=== PATIENT | male | born 1955 | race Caucasian/White ===

== ENCOUNTER 2016-05-28 13:15 | Emergency (ER) | payer MEDICARE, OTHER ==
[~2016-05-28] VITALS: Ht 182.9 cm; Wt 145.4 kg
[~2016-05-28 13:15] MED LIST: TORS20TA3 PO
[2016-05-28 13:20] VITALS: BP 151/77; PULSE 78; RESP 20; O2SAT 95
[2016-05-28 15:16] LABS: BASOPHILS % (AUTO) 0.1 % (0-3); EOSINOPHILS % (AUTO) 0.1 % (0-5); MONOCYTES % (AUTO) 4.5 % (4-12); Mean Corpuscular Hemoglobin 29.2 pg (27.0-35.0); Mean Corpuscular Volume 87.2 fL (81-100); NEUTROPHILS % (AUTO) 89.1 % (40-74); Platelet Count 154 bil/L (150-400)
[2016-05-28 15:32] VITALS: BP 143/69; PULSE 69; RESP 20; O2SAT 96
[2016-05-28 17:08] VITALS: BP 157/61; PULSE 78; RESP 20; O2SAT 100
--- NOTE | 2016-05-28 18:09 | ED.REPORT ---
HPI-Extremity Problem Lower Date of Service May 28, 2016 ED Provider: Edward Jacobs MD Pt is a 61 y/o male w/ a hx of CHF, stage 3 CKD, DM, presenting to the ED c/o rash over RLE onset this morning. The patient woke up this morning and noticed about 5 inches of redness and pain over his right thigh. Last night he was experiencing fevers and chills. He hasn't noticed any increased growth of the rash throughout the day. Pt denies nausea, vomiting, abdominal pain, SOB. He has had cellulitis previously and believes this episode is exactly similar. There is no history of MRSA. The patient has chronic wounds over his bilateral lower extremities and sees wound care weekly. Nursing Notes Stated Complaint: FEVER,RIGHT LEG SWOLLEN Chief Complaint: Extremity Trauma Nursing Notes Reviewed: Yes Allergies: Coded Allergies: Opioids - Morphine Analogues (Verified Allergy, Unknown, 08/22/11) hydrocodone bitartrate (Verified Allergy, Unknown, 08/22/11) hydromorphone (Verified Allergy, Unknown, 08/22/11) oxycodone (Verified Allergy, Unknown, 08/22/11) Uncoded Allergies: CODEINE (Generic Allergy) (Allergy, Unknown, Y, 08/22/11) CODEINE=N&V (Allergy, Unknown, 08/22/11) Opiate Agonists (Narcotics) (Allergy, Unknown, 08/22/11) TOMATOES (Allergy, Unknown, 08/22/11) CODEINE (Generic ADR) (Adverse Reaction, Unknown, Y, 08/22/11) N/V Scheduled Sulfamethoxazole/Trimeth 800-160 mg (Bactrim DS) 1 Each Tablet 1 TABLET PO BID Torsemide (Torsemide) 20 Mg Tablet 60 MG PO BID General Time Seen by MD: 18:08 Chief Complaint Other (Rash right thigh) Hx Obtained From: Patient Arrived By: Walk-in Onset Occurred: 9 - 12 hours ago Symptom Duration: Since onset Location: : Thigh right Quality: Painful Severity: Current: Mild Severity: Maximum: Mild Recent Healthcare: Previous diagnosis Similar Sx Previous: Yes Past Medical History Past Medical History DM, CHF, CKD stage III, peripheral neuropathy, chronic pain Past Surgical History None reported Smoking History Unknown if Ever Smoker Ambulatory Status Independent Review of Systems Constitutional: Reports: Chills, Fever Musculoskeletal: Reports: Extremity pain, Extremity swelling Skin: Reports Rash, Reports Swelling Complete sys rev & neg: except as marked. GI: Denies: Abdominal pain, Nausea, Vomiting Physical Exam Initial Vital Signs Vital Signs (First) Date Time Temp Pulse Resp B/P Pulse Ox O2 Delivery O2 Flow Rate FiO2 05/28/16 13:20 36.4 78 20 151/77 95 Room Air Initial VS: Reviewed, Vital signs abnormal Head / Eyes: Atraumatic, Normocephalic, PERRL ENT: Mucous membranes moist, Conjunctiva normal, No scleral icterus Neck: Supple, Full range of motion Respiratory: Breath sounds normal, Clear to auscultation, No respiratory distress Cardiovascular: Regular rate & rhythm, Heart sounds normal, Intact distal pulses Abdomen / GI: Soft, Non-tender Neurologic: Alert, Oriented, Nonfocal Psychiatric: Mood/affect normal, Behavior normal, Normal thought content Lower Extremity / Pelvis / MS: Atraumatic, Full range of motion, No deformity, Neurologic intact, Vascular intact Ankle / Foot: Atraumatic, Full range of motion, No deformity, Neurologic intact , Vascular intact General/Constitutional: Awake, Alert, No acute distress, Cooperative, Not toxic appearing Appearance / Presentation: Positive: Obese Skin: Atraumatic, Warm, Dry Color / Condition: Positive: Rash present Rash / Lesion Notes: Chronic ulcers RLE. Several scattered superficial ulcers. No purulence right anterior yepez. Scattered erythema medial right thigh about 10 x 5 cm. Interpretation & Diagnostics Lab Results Interpretation Result Diagram: 05/28/16 1510 05/28/16 1510 Test 05/28/16 15:10 White Blood Count 10.5th/mm3 (3.8-10.1) Red Blood Count 4.31mil/mm3 (4.40-5.80) Hemoglobin 12.6g/dL (13.8-17.2) Hematocrit 37.6% (41.0-50.0) Mean Corpuscular Volume 87.2fL (81-100) Mean Corpuscular Hemoglobin 29.2pg (27.0-35.0) Mean Corpuscular Hemoglobin Concent 33.5% (32.0-37.0) Red Cell Distribution Width 14.7% (12.3-15.4) Platelet Count 154bil/L (150-400) Neutrophils (%) (Auto) 89.1% (40-74) Lymphocytes (%) (Auto) 5.9% (14-46) Monocytes (%) (Auto) 4.5% (4-12) Eosinophils (%) (Auto) 0.1% (0-5) Basophils (%) (Auto) 0.1% (0-3) Sodium Level 133mEq/L (134-144) Potassium Level 4.8mEq/L (3.5-5.2) Chloride Level 94mEq/L (97-108) Carbon Dioxide Level 24mmol/L (18-29) Blood Urea Nitrogen 35mg/dL (8-27) Creatinine 1.63mg/dL (0.76-1.27) Estimat Glomerular Filtration Rate 46mL/min (>59) Glucose Level 352mg/dL (60-99) Calcium Level 8.8mg/dL (8.5-10.1) Total Bilirubin 1.6mg/dL (0.0-1.2) Aspartate Amino Transf (AST/SGOT) 22U/L (0-50) Alanine Aminotransferase (ALT/SGPT) 27U/L (0-44) Alkaline Phosphatase 64U/L (25-160) Total Protein 6.6g/dL (6.4-8.4) Albumin 4.1g/dL (3.4-5.0) Hold Argueta Top Tube Received (Received) Re-Eval/Medical Decision Med Decision/Clinical Course 61-year-old male history of diabetes, CKD3, CHF presenting with right thigh cellulitis times one day. Chronic lower extremity ulcers seen by wound care. Reports redness starting today. No fevers. Vital signs stable. Patient with scattered right thigh cellulitis. White blood cell count is 10. Vital signs stable here. Will give 1 dose of IV clindamycin here. Will start on Bactrim. Patient has follow-up with primary doctor in 2 days. He is advised to return if any worsening or new symptoms prior to appointment. Re-Evaluation/Progress : Time of Eval: 19:01 Re-Evaluation/Progress Note: Pt rechecked. Informed pt of plan for treatment. Pt understands and agrees with plan for treatment. F/U instructions and RTER warnings given. All questions addressed. Counseled Regarding: Diagnosis, Lab results, Need for follow-up, When/why to return to ED Discharge & Departure Impression: Primary Impression: Cellulitis of right leg Disposition: Home Discharge Condition All VS Reviewed: Yes Condition: Stable Patient Instructions: Cellulitis (ED) Additional Instructions: Your exam is consistent with cellulitis, an infection of the skin. Take the full course of Bactrim as directed. Return to the emergency department if your rash increases in size, pain increases, or for vomiting, abdominal pain, high fever, shaking chills, or other concerning symptoms. Follow-up with your primary care doctor in 2-3 days. Referrals: Hallie Kelly MD (PCP) Art Attestation Portions of this note were transcribed by Holden Godinez. I, Dr. Jacobs, personally performed the history, physical exam and medical decision-making; I reviewed and confirmed the accuracy of the information in the transcribed note. Signed by Art Bailey, 05/28/16 - [id number] copies to: Hallie Kelly MD, Ben M MD May 28, 2016 18:09 HOLDEN GODINEZ May 28, 2016 18:44
[2016-05-28] MEDS ORDERED: SULF1TAB7 PO (18:43)
[2016-05-28] MEDS ORDERED: Clindamycin Inj 300 MG in Dextrose 5% 50 ML IV ONE (18:45)
[2016-05-28 19:48] VITALS: BP 149/56; PULSE 75; RESP 20; O2SAT 95
[2016-07-20] MEDS ORDERED: EPLE25TA3 PO (16:19)
[2016-07-20] MEDS ORDERED: ASPI325T32 PO (16:19)
[2016-07-20] MEDS ORDERED: CLON0.1T PO (16:19)
[2016-07-20] MEDS ORDERED: INSU100V27 SQ (16:19)
[2016-07-20] MEDS ORDERED: LIP40 PO (16:19)
[2016-07-20] MEDS ORDERED: NPH,100V10 SUBQ (16:19)
[2016-07-20] MEDS ORDERED: MAGN64TA7 PO (16:19)
[2016-07-20] MEDS ORDERED: TORS20TA3 PO ×3 (16:19)
[2016-07-20] MEDS ORDERED: MULT-1018 PO (16:19)
[2016-07-20] MEDS ORDERED: CARV25TA2 PO (16:19)
[2016-07-20] MEDS ORDERED: GLIM4TAB PO (16:19)
[2016-07-20] MEDS ORDERED: [UNRECOGNIZED DRUG - CODE] TP (16:19)
[2016-07-20] MEDS ORDERED: TERA5CAP6 PO (16:19)
[2016-07-20] MEDS ORDERED: HYDR-3740 PO (16:19)
[2016-07-20] MEDS ORDERED: AMOX-366 PO (16:19)
== END 2016-05-28 19:50 | disposition home or self-care (01) ==
LOC: SED 13:15
DX: L03.115 Cellulitis of right lower limb (principal); R50.9 Fever, unspecified; L97.919 Non-pressure chronic ulcer of unspecified part of right lower leg with unspecified severity; L97.929 Non-pressure chronic ulcer of unspecified part of left lower leg with unspecified severity; E11.22 Type 2 diabetes mellitus with diabetic chronic kidney disease; N18.3 Chronic kidney disease, stage 3 (moderate); E11.59 Type 2 diabetes mellitus with other circulatory complications; I50.9 Heart failure, unspecified; E11.40 Type 2 diabetes mellitus with diabetic neuropathy, unspecified; Z88.5 Allergy status to narcotic agent

== ENCOUNTER 2016-07-13 18:13 | Observation (INO) | payer MEDICARE, OTHER ==
[~2016-07-13] VITALS: Ht 182.9 cm; Wt 148.8 kg
[~2016-07-13 18:13] MED LIST changes: +SULF1TAB7 PO
[2016-07-13 18:25] VITALS: BP 165/83; PULSE 73; RESP 16; O2SAT 97
[2016-07-13] MEDS ORDERED: HYDROmorphone 0.5 mg/0.5 mL iSecure Syringe IVPUSH PRN (18:45)
[2016-07-13] MEDS ORDERED: Ondansetron 2 mg/mL 2 mL Inj IVPUSH PRN ×2 (18:45→22:50)
[2016-07-13 18:53] LABS: BASOPHILS % (AUTO) 0.5 % (0-3); EOSINOPHILS % (AUTO) 4.7 % (0-5); MONOCYTES % (AUTO) 7.9 % (4-12); Mean Corpuscular Hemoglobin 28.4 pg (27.0-35.0); NEUTROPHILS % (AUTO) 62.7 % (40-74); Platelet Count 209 bil/L (150-400)
[2016-07-13 19:12] LABS: Magnesium 2.2 mg/dL (1.6-2.6)
--- NOTE | 2016-07-13 19:46 | ED.REPORT ---
HPI-Abd Pain M 40 and Over Date of Service Jul 13, 2016 ED Provider: Tommy Mckinley MD A 63 year old male with a history of CHF, stage III chronic kidney disease, hypertension, peripheral neuropathy and diabetes mellitus presents to the ED via EMS complaining of epigastric abdominal pain that began at 1600 this evening. He reports one similar episode of pain in 2004 unclear cause, possbily hiatial hernia. His symptoms tonight began after eating. He describes his pain as if he was "hit with a baseball bat". Associated symptoms include SOB, nausea and diaphoresis. He denies any dysuria, fever, chills or vomiting. He denies any recent injury. Patient received 15 mg of morphine en route. Patient is not currently on any blood thinners. Nursing Notes Stated Complaint: ABDOMINAL PAIN Chief Complaint: Male Abdominal Pain Nursing Notes Reviewed: Yes Allergies: Coded Allergies: gabapentin (Verified Allergy, Mild, N/V, 07/13/16) Scheduled Atorvastatin (Lipitor) 40 Mg Tablet 40 MG PO DAILY Carvedilol (Carvedilol) 25 Mg Tablet 25 MG PO BID Clonidine (Clonidine) 0.1 Mg Tablet 0.1 MG PO BID Eplerenone (Eplerenone) 25 Mg Tablet 25 MG PO DAILY Glimepiride (Amaryl) 4 Mg Tablet 4 MG PO DAILY Insulin Regular, Human (Novolin-R U100 Insulin Vial) 100 Unit/1 Ml Vial 60 SQ BIDAC Magnesium Chloride (Mag64) 64 Mg Tablet.er 64 MG PO BID Multivitamin (Multi Vitamin Daily) 1 Each Tablet 1 EACH PO DAILY Polyethylene Glycol 3350 (Polyethylene Glycol 3350) 17 Gm Powd.pack 17 GM PO DAILY Psyllium Seed (with Sugar) (Metamucil Packet) 1 Each Packet 1 EACH PO DAILY Terazosin (Terazosin) 5 Mg Capsule 5 MG PO HS Torsemide (Torsemide) 20 Mg Tablet 20 MG PO BID Scheduled PRN Hydrocodone-Acetaminophen 10-325 mg (Hydrocodone-Acetaminophen 10-325 mg) 1 Each Tablet 1 TABLET PO Q6H PRN PRN For Pain NPH, Human Insulin Isophane (Novolin-N U100 Insulin Vial) 100 Unit/1 Ml Vial 60 UNIT SUBQ BIDAC PRN PRN For Agitation General Time Seen by MD: 19:33 Chief Complaint Abdominal pain Hx Obtained From: Patient Arrived By: Ambulance Sudden in Onset?: Yes Onset Occurred: 1 - 4 hours ago Context of Onset: Eating Symptom Duration: Since onset Progression since Onset: Unchanged Location: : Epigastric Quality: Painful ("hit with a baseball bat") Radiation: : Does not radiate Severity: Current: Mild Severity: Maximum: Moderate Associated with: Reports: Nausea, Denies: Chills, Dysuria, Fever, Vomiting Pertinent Negative: Pt denies other symptoms Recent Healthcare: No recent hospitalization, Recent doctor visit Risk Factors )( AAA Risk Stratification Risk factors reviewed Past Medical History Past Medical History Notes: PCP: Dr. Hallie Kelly Past Medical History DM CHF CKD stage III Peripheral neuropathy Chronic pain Statis dematitis Diaphramitic hernia LAKISHA Benign prostatic hypertrophy Past Surgical History None reported Smoking History Unknown if Ever Smoker Social History Other Social History: Good social support, Local resident Ambulatory Status Independent Review of Systems Constitutional: Denies: Chills, Fever Respiratory: Denies: Shortness of breath GI: Reports: Abdominal pain, Nausea, Denies: Vomiting Complete sys rev & neg: except as marked. Skin: Reports Diaphoresis Physical Exam Initial Vital Signs Vital Signs (First) Date Time Temp Pulse Resp B/P Pulse Ox O2 Delivery O2 Flow Rate FiO2 07/13/16 18:25 36.7 73 16 165/83 97 Room Air Initial VS: Reviewed Head / Eyes: Atraumatic, Normocephalic, PERRL Extremities: Vascular intact, Neuro intact, No swelling, No tenderness Skin: Warm, Dry, No cyanosis Neurologic: Alert, Oriented, Nonfocal Psychiatric: Mood/affect normal, Behavior normal, Normal thought content General/Constitutional: Awake, Alert, No acute distress Respiratory / Chest: Atraumatic, Breath sounds NL, Breath sounds = bilat, No respiratory distress Cardiovascular: Heart rate NL, Regular rhythm, Heart sounds NL, No gallop, No murmurs, No rubs Abdomen: Atraumatic, Soft, No guarding, No rebound, BS normoactive Tenderness/Guarding/Rebound: Positive: Tender epigastric Back: Atraumatic, Inspection NL, No CVA tenderness Interpretation & Diagnostics Lab Results Interpretation Result Diagram: 07/13/16 1820 07/13/16 182 Test 07/13/16 18:20 07/13/16 19:31 White Blood Count 5.7th/mm3 (3.8-10.1) Red Blood Count 4.64mil/mm3 (4.40-5.80) Hemoglobin 13.2g/dL (13.8-17.2) Hematocrit 39.9% (41.0-50.0) Mean Corpuscular Volume 86.0fL (81-100) Mean Corpuscular Hemoglobin 28.4pg (27.0-35.0) Mean Corpuscular Hemoglobin Concent 33.1% (32.0-37.0) Red Cell Distribution Width 15.4% (12.3-15.4) Platelet Count 209bil/L (150-400) Neutrophils (%) (Auto) 62.7% (40-74) Lymphocytes (%) (Auto) 23.0% (14-46) Monocytes (%) (Auto) 7.9% (4-12) Eosinophils (%) (Auto) 4.7% (0-5) Basophils (%) (Auto) 0.5% (0-3) D-Dimer 0.83mg/L FEU (<0.50) Sodium Level 140mEq/L (134-144) Potassium Level 3.9mEq/L (3.5-5.2) Chloride Level 98mEq/L (97-108) Carbon Dioxide Level 25mmol/L (18-29) Blood Urea Nitrogen 28mg/dL (8-27) Creatinine 1.40mg/dL (0.76-1.27) Estimat Glomerular Filtration Rate 55mL/min (>59) Glucose Level 112mg/dL (60-99) Calcium Level 10.3mg/dL (8.5-10.1) Magnesium Level 2.2mg/dL (1.6-2.6) Total Bilirubin 1.0mg/dL (0.0-1.2) Aspartate Amino Transf (AST/SGOT) 38U/L (0-50) Alanine Aminotransferase (ALT/SGPT) 34U/L (0-44) Alkaline Phosphatase 78U/L (25-160) Troponin T 0.024ug/L (0.0-0.011) Total Protein 8.2g/dL (6.4-8.4) Albumin 4.3g/dL (3.4-5.0) Lipase 58U/L (13-60) Urine Color Yellow (YELLOW) Urine Appearance Clear (CLEAR,HAZY) Urine pH 6.0 (5.0-8.0) Urine Specific Theresa 1.010 (1.003-1.035) Urine Protein Negativemg/dL (NEG,TRACE) Urine Glucose (UA) Negativemg/dL (NEGATIVE) Urine Ketones Negativemg/dL (NEGATIVE) Urine Occult Blood Negative (NEGATIVE) Urine Nitrite Negative (NEGATIVE) Urine Bilirubin Negative (NEGATIVE) Urine Urobilinogen Normalmg/dL (NORMAL) Urine Leukocyte Esterase Negative (NEGATIVE) Urine RBC 0-2/hpf (0-2) Urine WBC 0-5/hpf (0-5) Urine Epithelial Cells Occasional/hpf (NONE-MOD) Urine Crystals None seen (NONE SEEN) Urine Bacteria None/hpf (NONE-FEW) Urine Hyaline Casts Occasional/lpf (NONE) Urine Granular Casts None seen (NONE SEEN) Urine Waxy Casts None seen (NONE SEEN) Urine Red Blood Cell Casts None seen (NONE SEEN) Urine White Blood Cell Casts None seen (NONE SEEN) Urine Mucus None seen (None Seen) Urine Trichomonas None seen (NONE SEEN) Urine Yeast None (NONE SEEN) Urine Culture Reflexed Not indicated ECG Interpretation ECG Interpretation: Sinus Rhythm Rate 67 No acute Probable left atrial enlargement Left ventricular hypertrophy Time: 20:47 Interpreted by: ED physician Normal ECG Interpretation: No change from prior ECGs (03/26) X-Ray Chest Interpretation Chest Xray Interpretation: IMPRESSION: No acute disease Dictated by: Devin Chirinos M.D. on 07/13/2016 at 21:12 Interpretation / Wet Read by: Interpret - Radiologist CT Chest Interpretation IMPRESSION: Suboptimal study due to mildly decreased opacification of the pulmonary arteries, however no gross filling defect to suggest pulmonary embolism identified Scattered atelectasis without focal consolidation. Cardiomegaly Dictated by: Devin Chirinos M.D. on 07/13/2016 at 22:01 Study type: CT pulm angiogram Interpretation / Wet Read by: Interpret - Radiologist CT Abd / Pelvis Interpretation IMPRESSION: Cholelithiasis. In addition, 1 mm calcification is seen in the region of the distal common bile duct in the ampullary segment raising the possibility of choledocholithiasis. However, no biliary ductal dilatation. Recommend correlation to LFTs. Nonobstructive left renal calculus. Dictated by: Devin Chirinos M.D. on 07/13/2016 at 21:56 Study type: Abdominal CT IV contrast Re-Eval/Medical Decision Med Decision/Clinical Course Epigastric pain, acute onset now much improved. Has some continued midline tenderness. No pancreatitis or biliary disease other than stones, could have been biliary colic. Report of dyspnea prompted workup for ishcemia/PE. chest angio negative and abd CT helpful in exclusion of biliary disease. Do not thing RUQ US needed at this point. Trop elevated and no baseline, plan to to follow. Time of Eval: 21:15 Re-Evaluation/Progress Note: Patient reports that his dyspnea has become incresingly worse for the past few days. He is informed of his X-ray results. He has agrees with the plan to admit after obtaining a CT scan. Time of Eval: 22:33 Patient Status: Condition improved Re-Evaluation/Progress Note: Patient is informed of his CT results and agrees with the plan. All questions are addressed. His pain has resovled. Code status is discussed in front of the patient's daughter. He reports that he would like to be full code. Consultation : Referral / Consult Name: Prashanth Lazaro MD Consulted With: Hospitalist [employer]: Will see patient, Agrees with eval, Agrees with plan, Referred to other consult Counseled Regarding: Diagnosis, Lab results, Need for admission Discharge & Departure Primary Impression: Epigastric abdominal pain Additional Impressions: Dyspnea Dyspnea type: unspecified Qualified Code: R06.00 - Dyspnea, unspecified Elevated troponin Disposition: ADMITTED TO HOSPITAL Vital Signs - All Vital Signs Date Time Temp Pulse Resp B/P Pulse Ox O2 Delivery O2 Flow Rate FiO2 07/13/16 18:25 36.7 73 16 165/83 97 Room Air )( All Prior VS Reviewed: Yes Condition: Stable Referrals: Hallie Kelly MD (PCP) Art Attestation Portions of this note were transcribed by Bob Rai. I, Dr. Mckinley personally performed the history, physical exam and medical decision-making; I reviewed and confirmed the accuracy of the information in the transcribed note. Signed by: Art Pino, 07/13/16 [id number]. copies to: Hallie Kelly MD, Donald L MD Jul 13, 2016 19:46 BOB RAI Jul 13, 2016 19:50
[2016-07-13 20:09] LABS: APPEARANCE,URINE CLEAR (CLEAR,HAZY); COLOR,URINE YELLOW (YELLOW); OCCULT BLOOD,URINE NEGATIVE (NEGATIVE); UROBILINOGEN,URINE NORMAL (NORMAL)
[2016-07-13] MEDS ORDERED: CARV25TA2 PO (20:20)
[2016-07-13] MEDS ORDERED: GLIM4TAB PO (20:20)
[2016-07-13] MEDS ORDERED: LIP40 PO (20:20)
[2016-07-13] MEDS ORDERED: PSYL1PAC10 PO (20:33)
[2016-07-13] MEDS ORDERED: MULT-1018 PO (20:33)
[2016-07-13] MEDS ORDERED: TERA5CAP6 PO (20:33)
[2016-07-13] MEDS ORDERED: NPH,100V10 SUBQ (20:33)
[2016-07-13] MEDS ORDERED: HYDR-3740 PO (20:33)
[2016-07-13] MEDS ORDERED: MAGN64TA7 PO (20:33)
[2016-07-13] MEDS ORDERED: TORS20TA3 PO ×2 (20:33→23:46)
[2016-07-13] MEDS ORDERED: EPLE25TA3 PO (20:33)
[2016-07-13] MEDS ORDERED: CLON0.1T PO (20:33)
[2016-07-13] MEDS ORDERED: INSU100V27 SQ (20:33)
[2016-07-13] MEDS ORDERED: POLY17PO2 PO (20:33)
--- NOTE | 2016-07-13 21:14 | DRSVH ---
PROCEDURE: X-RAY CHEST ONE VIEW, PORTABLE ([id number]) INDICATIONS: dyspnea TECHNIQUE: One view of the chest was acquired. COMPARISON: None. FINDINGS: Surgical changes and devices: None. Lungs and pleura: No pleural effusions or pneumothorax. Lungs are clear. Mediastinum: Mediastinal contours appear normal. Heart size is normal. Bones and chest wall: No suspicious bony lesions. Overlying soft tissues appear unremarkable. IMPRESSION: No acute disease Dictated by: Devin Chirinos M.D. on 07/13/2016 at 21:12 Approved by: Devin Chirinos M.D. on 07/13/2016 at 21:13
[2016-07-13] MEDS ORDERED: 0.9% Sodium Chloride 500 ML IV ONE (21:20)
--- NOTE | 2016-07-13 22:02 | DRSVH ---
PROCEDURE: CT ABDOMEN WITH CONTRAST ([id number]) INDICATIONS: dyspnea and epigastric pain TECHNIQUE: After the administration of intravenous contrast, 5 mm thick sections acquired from the diaphragm to the iliac crests. 5 mm coronal and sagittal reformats were performed. For radiation dose reduction, the following was used: automated exposure control, adjustment of mA and/or kV according to patient size. COMPARISON: None. FINDINGS: Image quality: Excellent. Lung bases: Lung bases are clear. Heart size is normal. Solid organs: Subcentimeter hypodensity in the liver dome image 14 is too small characterize and tech nically nonspecific. Otherwise, liver grossly unremarkable. Gallbladder contains multiple gallstones however no definite gallbladder wall thickening or pericholecystic inflammation. There is a 1 mm calc ification seen on image 48 series 6 in the region of the distal common bile duct raising the possibil ity of choledocholithiasis. No definite bili ductal dilatation. Pancreas is grossly unremarkable. Spl een and adrenal glands within normal limits. Nonobstructive left renal calculus measuring 1 mm on ankita ge 49. Right kidney grossly unremarkable. No hydronephrosis. Peritoneum and bowel: Bowel loops demonstrate normal wall thickness and caliber. No free fluid or a ir. Probable pill fragment seen in the distal stomach/proximal duodenum Nodes and vessels: No retroperitoneal or mesenteric adenopathy by size criteria. Aorta and inferior vena cava are normal in size. Miscellaneous: Partially visualized possible midline ventral hernia however incompletely imaged there fore indeterminate. IMPRESSION: Cholelithiasis. In addition, 1 mm calcification is seen in the region of the distal common bile duct in the ampullary segment raising the possibility of choledocholithiasis. However, no biliary ductal d ilatation. Recommend correlation to LFTs. Nonobstructive left renal calculus. Dictated by: Devin Chirinos M.D. on 07/13/2016 at 21:56 Approved by: Devin Chirinos M.D. on 07/13/2016 at 22:01
--- NOTE | 2016-07-13 22:06 | DRSVH ---
PROCEDURE: CT ANGIO CHEST PULMONARY EMBOLISM ([id number]) INDICATIONS: dyspnea and epigastric pain TECHNIQUE: After the administration of intravenous contrast, 2 mm thick sections acquired from the pulmonary api dominique to the posterior costophrenic angles. 3-dimensional maximum intensity projection (MIP) coronal a nd sagittal reformats were then acquired through the thorax. For radiation dose reduction, the follo wing was used: automated exposure control, adjustment of mA and/or kV according to patient size. COMPARISON: None. FINDINGS: Image quality: Suboptimal due to decreased opacification of the pulmonary arteries Pulmonary arteries: Suboptimal evaluation however the central pulmonary arteries are normal in size, and demonstrate no intraluminal filling defects to suggest pulmonary embolism. Lungs and pleura: No focal consolidation. Scattered groundglass opacities presumably atelectasis. No pleural effusions or pneumothorax. Central and peripheral airways are patent. Mediastinum: Heart size is enlarged, without pericardial effusion. No mediastinal or hilar adenopat hy. Thoracic aorta is normal in caliber and enhancement. Esophagus is normal in caliber, without hi atal hernia. Bones and chest wall: No suspicious bony lesions. Ribs and thoracic spine appear intact throughout. Thyroid gland unremarkable. No axillary or supraclavicular adenopathy. Abdomen: Visualized upper abdominal solid organs appear normal in the early arterial phase of enhanc ement. IMPRESSION: Suboptimal study due to mildly decreased opacification of the pulmonary arteries, however no gross fi lling defect to suggest pulmonary embolism identified Scattered atelectasis without focal consolidation. Cardiomegaly Dictated by: Devin Chirinos M.D. on 07/13/2016 at 22:01 Approved by: Devin Chirinos M.D. on 07/13/2016 at 22:04
[2016-07-13] MEDS ORDERED: Alum-Mag Hydrox-Simeth 30 mL Suspension PO PRN (22:50)
[2016-07-13 23:35] VITALS: BP 155/79; PULSE 67; RESP 17; O2SAT 95
[2016-07-13] MEDS ORDERED: AMOX-366 PO (23:45)
[2016-07-13] MEDS ORDERED: ASPI325T32 PO (23:45)
[2016-07-13] MEDS ORDERED: CYAN500 PO (23:51)
[2016-07-14] VITALS (9 sets, daily range): BP systolic 123–176; BP diastolic 67–79; PULSE 61–75; RESP 12–20; O2SAT 94–97
--- NOTE | 2016-07-14 00:12 | NUR ---
Admit Note Pt arrived to room 3003 at around 0000. Alert and oriented. No pain at this time. Able to walk around, steady on feet. Daughter at bedside.
[2016-07-14] MEDS ORDERED: Polyethylene Glycol (PEG) 17 Gm Powder PO PRN (00:25)
[2016-07-14] MEDS ORDERED: Ondansetron 2 mg/mL 2 mL Inj IVPUSH PRN (00:25)
[2016-07-14] MEDS ORDERED: Alum-Mag Hydrox-Simeth 30 mL Suspension PO PRN (00:25)
--- NOTE | 2016-07-14 00:29 | PCM.HPMED ---
Subjective Date of Service Jul 14, 2016 Primary Provider: Admitting Physician: Prashanth Lazaro MD Primary Care Physician: Hallie Kelly MD Attending Physician: Prashanth Lazaro MD Chief Complaint: epigastric pain History of Present Illness: 61yo gentleman with hx of dm2, chf, htn, hld Review of Systems: Positive Review of Symptoms mentioned and elaborated on in HPI. Head: Denies H/A, trauma, loss of consciousness. Eyes: Denies visual loss, diplopia. Ears: Denies: deafness, tinnitis, discharge, pain Nose: Denies discharge, obstruction, epistaxis Mouth: Denies sores, gingival bleeding, jaw pain Neck: Denies stiffness, issues swallowing. Respiratory: Denies dyspnea, cough, sputum. Cardiovascular:Denies CP, palpitations Gastrointestinal: Denies melena, n/v/d Genitourinary: Denies dysuria, discharge. Skin: Denies: new lesions, rashes, pruritus. Musculoskeletal: Denies new joint pain, swelling or increased warmth. Neuro: Denies numbness, tingling, weakness. Psyc: Currently denies feelings of anxiety, depression. Allergies Coded Allergies: gabapentin (Verified Allergy, Mild, N/V, 07/13/16) Home Medications see med rec PMH see hpi Surgical History multiple surgeries appendix, knee, ankle Family History dad heart disease Social History Hx Alcohol Use: No Hx Substance Use: No Smoking Status: Unknown if Ever Smoker Exam Vital Signs Vital Sign - Last Date Time Temp Pulse Resp B/P Pulse Ox O2 Delivery O2 Flow Rate FiO2 07/14/16 00:24 36.7 75 18 145/70 94 Room Air Intake and Output 07/13/16 07/13/16 07/14/16 Cumulative From/Thru 15:00 23:00 07:00 07/13/16 18:25 - 07/13/16 23:56 Intake Total 500 ml 500 ml Balance 500 ml 500 ml Intake IV Total 500 ml 500 ml Exam General: No acute distress. Awake, alert. Head: Normocephalic, atraumatic. Eyes: White sclera. Conjunctiva non-injected. Mouth & Throat: No Bleeding. No erythema, lesions, exudates visualized. Neck: No tender adenopathy. Trachea midline. Respiratory: Clear to auscultation bilaterally. Symmetric chest expansion. Regular work of breathing without use of accessory muscles. Cardiovascular: S1, S2. Regular rate and rhythm without murmurs, rubs or gallops. Pulses 2+ equal bilaterally. Abdomen: Normal bowel sounds x4 quadrants. Soft, non-tender, mild distention Neurologic: Awake, alert, oriented x3. No focal deficits. Psychiatric: Appropriate mood and affect. Cooperative. Lab and Diagnostics Result Diagram: 07/13/160 07/13/161819 X-Rays, CTs and MRIs Patient Name: AURORA RUIZ MR#: [id number] Location: [facility] – [place] Ordering Phys: Tommy Mckinley MD Date of Service: 07/13/162118 PROCEDURE: CT ANGIO CHEST PULMONARY EMBOLISM ([id number]) INDICATIONS: dyspnea and epigastric pain TECHNIQUE: After the administration of intravenous contrast, 2 mm thick sections acquired from the pulmonary apices to the posterior costophrenic angles. 3-dimensional maximum intensity projection (MIP) coronal and sagittal reformats were then acquired through the thorax. For radiation dose reduction, the following was used: automated exposure control, adjustment of mA and/or kV according to patient size. COMPARISON: None. FINDINGS: Image quality: Suboptimal due to decreased opacification of the pulmonary arteries Pulmonary arteries: Suboptimal evaluation however the central pulmonary arteries are normal in size, and demonstrate no intraluminal filling defects to suggest pulmonary embolism. Lungs and pleura: No focal consolidation. Scattered groundglass opacities presumably atelectasis. No pleural effusions or pneumothorax. Central and peripheral airways are patent. Mediastinum: Heart size is enlarged, without pericardial effusion. No mediastinal or hilar adenopathy. Thoracic aorta is normal in caliber and enhancement. Esophagus is normal in caliber, without hiatal hernia. Bones and chest wall: No suspicious bony lesions. Ribs and thoracic spine appear intact throughout. Thyroid gland unremarkable. No axillary or supraclavicular adenopathy. Abdomen: Visualized upper abdominal solid organs appear normal in the early arterial phase of enhancement. IMPRESSION: Suboptimal study due to mildly decreased opacification of the pulmonary arteries , however no gross filling defect to suggest pulmonary embolism identified Scattered atelectasis without focal consolidation. Cardiomegaly Dictated by: Devin Chirinos M.D. on 07/13/2016 at 22:01 Approved by: Devin Chirinos M.D. on 07/13/2016 at 22:04 Patient Name: AURORA RUIZ MR#: [id number] Location: [facility] [place] Ordering Phys: Tommy Mckinley MD Date of Service: 07/13/162118 PROCEDURE: CT ABDOMEN WITH CONTRAST ([id number]) INDICATIONS: dyspnea and epigastric pain TECHNIQUE: After the administration of intravenous contrast, 5 mm thick sections acquired from the diaphragm to the iliac crests. 5 mm coronal and sagittal reformats were performed. For radiation dose reduction, the following was used: automated exposure control, adjustment of mA and/or kV according to patient size. COMPARISON: None. FINDINGS: Image quality: Excellent. Lung bases: Lung bases are clear. Heart size is normal. Solid organs: Subcentimeter hypodensity in the liver dome image 14 is too small characterize and technically nonspecific. Otherwise, liver grossly unremarkable. Gallbladder contains multiple gallstones however no definite gallbladder wall thickening or pericholecystic inflammation. There is a 1 mm calcification seen on image 48 series 6 in the region of the distal common bile duct raising the possibility of choledocholithiasis. No definite bili ductal dilatation. Pancreas is grossly unremarkable. Spleen and adrenal glands within normal limits. Nonobstructive left renal calculus measuring 1 mm on image 49. Right kidney grossly unremarkable. No hydronephrosis. Peritoneum and bowel: Bowel loops demonstrate normal wall thickness and caliber. No free fluid or air. Probable pill fragment seen in the distal stomach/proximal duodenum Nodes and vessels: No retroperitoneal or mesenteric adenopathy by size criteria. Aorta and inferior vena cava are normal in size. Miscellaneous: Partially visualized possible midline ventral hernia however incompletely imaged therefore indeterminate. IMPRESSION: Cholelithiasis. In addition, 1 mm calcification is seen in the region of the distal common bile duct in the ampullary segment raising the possibility of choledocholithiasis. However, no biliary ductal dilatation. Recommend correlation to LFTs. Nonobstructive left renal calculus. Dictated by: Devin Chirinos M.D. on 07/13/2016 at 21:56 Approved by: Devin Chirinos M.D. on 07/13/2016 at 22:01 Assessment & Plan -- epigastric pain resolved now. lft's normal. no ruq pain. cont to monitor. -- elevated troponin investigate for cardiac etiology serial troponins, echocardiogram, possible stress test in am. aspirin, statin, beta zac if necessary and as tolerated prn morphine, nitro. cbc, bmp, magnesium, tsh, lipid panel, urine toxicology if cardiac etiologies ruled out will evaluate for alternative differentials. should there be any clinical change in the interm to suggest an alternate diagnosis this will also be pursued. -- chf specifics not know. w/u as above. -- dm2 insulin regimen -- htn -- hld cont home medications as tolerated lipid panel. -- f/e/n:npo in case of stress test /. procedure in am. -- dvt prophylaxis: lovenox Dipso: Admit to inpt tele with expected length of stay > 2 midnights. Resuscitation Status: CPR: Attempt Resuscitation Prashanth Lazaro MD Jul 14, 2016 00:29
[2016-07-14] MEDS ORDERED: Glucose 40% Oral Gel 15 Gm Tube PO PRN (00:30)
[2016-07-14 01:45] LABS: BASOPHILS % (AUTO) 0.6 % (0-3); EOSINOPHILS % (AUTO) 2.6 % (0-5); MONOCYTES % (AUTO) 8.6 % (4-12); Mean Corpuscular Hemoglobin 28.4 pg (27.0-35.0); Mean Corpuscular Volume 87.5 fL (81-100); NEUTROPHILS % (AUTO) 66.6 % (40-74); Platelet Count 174 bil/L (150-400)
[2016-07-14 02:29] LABS: TROPONIN T 0.016 ug/L (0.0-0.011)
[2016-07-14] MEDS ORDERED: Insulin LISPRO 300 Unit/3 mL Inj SUBQ SCH (08:00)
--- NOTE | 2016-07-14 10:39 | NUR ---
Lab MD garcía pagedionne and notified at 1038 that last drawn troponin was a bit up from last one at 0.026. No c/o cp or SOB, VSS. Will continue to monitor. Addendum: 07/14/16 at 1323 by DEEPIKA TRAVIS RN Blood sugar 1215 aware of last blood glucose of 230. To order new insulin SS. Pt stable. Continue to deny pain or discomfort.
--- NOTE | 2016-07-14 11:53 | PCM.DIGYN ---
Surgical Discharge Instruction Dates of Hospitalization Date of Hospital Admission Jul 13, 2016 at 23:16 Providers Admitting Physician: Prashanth Lazaro MD Primary Care Physician: Hallie Kelly MD Attending Physician: Prashanth Lazaro MD Diagnosis at Time of Discharge Diagnosis at time of discharge Patient see discharge summary Problems: Denise Diamond MD Jul 14, 2016 11:53
[2016-07-14] MEDS ORDERED: HYDROmorphone 1 mg/mL Inj IVPUSH PRN (12:45)
--- NOTE | 2016-07-14 12:55 | PCM.PNMED ---
Subjective Date of Service Jul 14, 2016 Subjective 61 y/o with sudden 4 hours epigastric pain goes to ER, pain now gone. CT show gall stones, possible 1mm stone distal CBD, and lft's went up the AM. Patient also had a similar episode here 10 years ago that was from a diagrammatic sudden herniation that correct itself with out intervention. No pain now. Exam Vital Signs Vital Sign - Last Date Time Temp Pulse Resp B/P Pulse Ox O2 Delivery O2 Flow Rate FiO2 07/14/16 10:10 152/79 07/14/16 09:59 61 07/14/16 09:25 36.3 20 96 Room Air Intake and Output 07/13/16 07/13/16 07/14/16 Cumulative From/Thru 15:00 23:00 07:00 07/13/16 18:25 - 07/14/16 00:30 Intake Total 500 ml 500 ml Balance 500 ml 500 ml IV Total 500 ml 500 ml Exam Eyes; jeremy, eom intact ENMT; good hydration no lession CV; no murmur, regular Resp; clear anteriorly GI; little discomfot to palpation left side > right side, very mile, soft and non acute Skin; small papular bump anterior chest Neuro; 2-12 intact, no focal neuro defects, neuropathy Lab and Diagnostics Result Diagram: 07/14/1612407/14/16124 X-Rays, CTs and MRIs Patient Name: AURORA RUIZ MR#: [id number] [place] [facility] [place]ing Phys: Tommy Mckinley MD Date of Service: 07/13/162118 PROCEDURE: CT ANGIO CHEST PULMONARY EMBOLISM ([id number]) INDICATIONS: dyspnea and epigastric pain TECHNIQUE: After the administration of intravenous contrast, 2 mm thick sections acquired from the pulmonary apices to the posterior costophrenic angles. 3-dimensional maximum intensity projection (MIP) coronal and sagittal reformats were then acquired through the thorax. For radiation dose reduction, the following was used: automated exposure control, adjustment of mA and/or kV according to patient size. COMPARISON: None. FINDINGS: Image quality: Suboptimal due to decreased opacification of the pulmonary arteries Pulmonary arteries: Suboptimal evaluation however the central pulmonary arteries are normal in size, and demonstrate no intraluminal filling defects to suggest pulmonary embolism. Lungs and pleura: No focal consolidation. Scattered groundglass opacities presumably atelectasis. No pleural effusions or pneumothorax. Central and peripheral airways are patent. Mediastinum: Heart size is enlarged, without pericardial effusion. No mediastinal or hilar adenopathy. Thoracic aorta is normal in caliber and enhancement. Esophagus is normal in caliber, without hiatal hernia. Bones and chest wall: No suspicious bony lesions. Ribs and thoracic spine appear intact throughout. Thyroid gland unremarkable. No axillary or supraclavicular adenopathy. Abdomen: Visualized upper abdominal solid organs appear normal in the early arterial phase of enhancement. IMPRESSION: Suboptimal study due to mildly decreased opacification of the pulmonary arteries , however no gross filling defect to suggest pulmonary embolism identified Scattered atelectasis without focal consolidation. Cardiomegaly Dictated by: Devin Chirinos M.D. on 07/13/2016 at 22:01 Approved by: Devin Chirinos M.D. on 07/13/2016 at 22:04 Patient Name: AURORA RUIZ MR#: [id number] [place] [facility] [place] Ordering Phys: Tommy Mckinley MD Date of Service: 07/13/162118 PROCEDURE: CT ABDOMEN WITH CONTRAST ([id number]) INDICATIONS: dyspnea and epigastric pain TECHNIQUE: After the administration of intravenous contrast, 5 mm thick sections acquired from the diaphragm to the iliac crests. 5 mm coronal and sagittal reformats were performed. For radiation dose reduction, the following was used: automated exposure control, adjustment of mA and/or kV according to patient size. COMPARISON: None. FINDINGS: Image quality: Excellent. Lung bases: Lung bases are clear. Heart size is normal. Solid organs: Subcentimeter hypodensity in the liver dome image 14 is too small characterize and technically nonspecific. Otherwise, liver grossly unremarkable. Gallbladder contains multiple gallstones however no definite gallbladder wall thickening or pericholecystic inflammation. There is a 1 mm calcification seen on image 48 series 6 in the region of the distal common bile duct raising the possibility of choledocholithiasis. No definite bili ductal dilatation. Pancreas is grossly unremarkable. Spleen and adrenal glands within normal limits. Nonobstructive left renal calculus measuring 1 mm on image 49. Right kidney grossly unremarkable. No hydronephrosis. Peritoneum and bowel: Bowel loops demonstrate normal wall thickness and caliber. No free fluid or air. Probable pill fragment seen in the distal stomach/proximal duodenum Nodes and vessels: No retroperitoneal or mesenteric adenopathy by size criteria. Aorta and inferior vena cava are normal in size. Miscellaneous: Partially visualized possible midline ventral hernia however incompletely imaged therefore indeterminate. IMPRESSION: Cholelithiasis. In addition, 1 mm calcification is seen in the region of the distal common bile duct in the ampullary segment raising the possibility of choledocholithiasis. However, no biliary ductal dilatation. Recommend correlation to LFTs. Nonobstructive left renal calculus. Dictated by: Devin Chirinos M.D. on 07/13/2016 at 21:56 Approved by: Devin Chirinos M.D. on 07/13/2016 at 22:01 Assessment & Plan 1. acute epigastric abdomianal pain, poa, improved -secondary to gall stone, possible recurrent transient herniation diaphragm, etc. 2. Acute biliary colic, poa, improving -GI consultation spoke with Dr. Rodriguez -try to do MRCP (size may preclude this study) -hepatitis panel -repeat cmp in am -Dialudid IV prn pain 3. 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 Elevated Troponin, poa, active -etiology unclear, possible secondary to CKD -egg, trend troponins, cpk -repeat echo 5.type 2 diabetes, insulin using, poa, stable -home dose 50 bid nph -0-100 units ac meals (nutritional and correctional) -as patient on clear liquids will continue NPH 20 BID, and let patient pick own nut/correctional insulin tid -HbA1C 6. chronic CHF secondary to diastolic dysfunction, poa, stable -Adjust diuretics as needed 7. Stage 3 CKD, poa, active 8. LAKISHA, poa, stable -use own cpap art night here 9. Hypertension, poa, stable 10. Full Code Status Resuscitation Status: CPR: Attempt Resuscitation Denise Diamond MD Jul 14, 2016 12:55 serial troponins, echocardiogram, possible stress test in am. aspirin, statin, beta zac if necessary and as tolerated prn morphine, nitro. cbc, bmp, magnesium, tsh, lipid panel, urine toxicology if cardiac etiologies ruled out will evaluate for alternative differentials. should there be any clinical change in the interm to suggest an alternate diagnosis this will also be pursued. -- chf specifics not know. w/u as above. -- dm2 insulin regimen -- htn -- hld cont home medications as tolerated lipid panel. -- f/e/n:npo in case of stress test /. procedure in am. -- dvt prophylaxis: lovenox Dipso: Admit to inpt tele with expected length of stay > 2 midnights. Resuscitation Status: CPR: Attempt Resuscitation Denise Diamond MD Jul 14, 2016 12:55
--- NOTE | 2016-07-14 13:05 | PCM.DC.MEX ---
Discharge Summary Date of Service Dates of Hospitalization Date of Hospital Admission Providers: Diagnosis at Time of ERROR, CANCEL THIS DICTATION Procedures XRay, CTs & MRIs Hospital Course Exam Test 07/13/16 18:20 07/13/16 19:31 07/14/16 01:25 07/14/16 08:47 D-Dimer 0.83mg/L FEU (<0.50) Magnesium Level 2.2mg/dL (1.6-2.6) Lipase 58U/L (13-60) Urine Color Yellow (YELLOW) Urine Appearance Clear (CLEAR,HAZY) Urine pH 6.0 (5.0-8.0) Urine Specific Arnett 1.010 (1.003-1.035) Urine Protein Negativemg/dL (NEG,TRACE) Urine Glucose (UA) Negativemg/dL (NEGATIVE) Urine Ketones Negativemg/dL (NEGATIVE) Urine Occult Blood Negative (NEGATIVE) Urine Nitrite Negative (NEGATIVE) Urine Bilirubin Negative (NEGATIVE) Urine Urobilinogen Normalmg/dL (NORMAL) Urine Leukocyte Esterase Negative (NEGATIVE) Urine RBC 0-2/hpf (0-2) Urine WBC 0-5/hpf (0-5) Urine Epithelial Cells Occasional/hpf (NONE-MOD) Urine Crystals None seen (NONE SEEN) Urine Bacteria None/hpf (NONE-FEW) Urine Hyaline Casts Occasional/lpf (NONE) Urine Granular Casts None seen (NONE SEEN) Urine Waxy Casts None seen (NONE SEEN) Urine Red Blood Cell Casts None seen (NONE SEEN) Urine White Blood Cell Casts None seen (NONE SEEN) Urine Mucus None seen (None Seen) Urine Trichomonas None seen (NONE SEEN) Urine Yeast None (NONE SEEN) Urine Culture Reflexed Not indicated White Blood Count 3.5th/mm3 (3.8-10.1) Red Blood Count 3.91mil/mm3 (4.40-5.80) Hemoglobin 11.1g/dL (13.8-17.2) Hematocrit 34.2% (41.0-50.0) Mean Corpuscular Volume 87.5fL (81-100) Mean Corpuscular Hemoglobin 28.4pg (27.0-35.0) Mean Corpuscular Hemoglobin Concent 32.5% (32.0-37.0) Red Cell Distribution Width 15.1% (12.3-15.4) Platelet Count 174bil/L (150-400) Neutrophils (%) (Auto) 66.6% (40-74) Lymphocytes (%) (Auto) 21.0% (14-46) Monocytes (%) (Auto) 8.6% (4-12) Eosinophils (%) (Auto) 2.6% (0-5) Basophils (%) (Auto) 0.6% (0-3) Sodium Level 131mEq/L (134-144) Potassium Level 4.3mEq/L (3.5-5.2) Chloride Level 94mEq/L (97-108) Carbon Dioxide Level 25mmol/L (18-29) Blood Urea Nitrogen 29mg/dL (8-27) Creatinine 1.38mg/dL (0.76-1.27) Estimat Glomerular Filtration Rate 55mL/min (>59) Glucose Level 384mg/dL (60-99) Calcium Level 8.6mg/dL (8.5-10.1) Total Bilirubin 1.1mg/dL (0.0-1.2) Aspartate Amino Transf (AST/SGOT) 276U/L (0-50) Alanine Aminotransferase (ALT/SGPT) 201U/L (0-44) Alkaline Phosphatase 94U/L (25-160) Total Protein 6.5g/dL (6.4-8.4) Albumin 3.6g/dL (3.4-5.0) Triglycerides Level 388mg/dL (0-149) Cholesterol Level 135mg/dL (100-199) LDL Cholesterol, Calculated 23.400mg/dL (0-99) VLDL Cholesterol 77.600mg/dL HDL Cholesterol 34mg/dL (>39) Cholesterol/HDL Ratio 3.97 (0.0-4.4) Troponin T 0.026ug/L (0.0-0.011) Denise Diamond MD Jul 14, 2016 13:05 34.2% (41.0-50.0) Mean Corpuscular Volume 87.5fL (81-100) Mean Corpuscular Hemoglobin 28.4pg (27.0-35.0) Mean Corpuscular Hemoglobin Concent 32.5% (32.0-37.0) Red Cell Distribution Width 15.1% (12.3-15.4) Platelet Count 174bil/L (150-400) Neutrophils (%) (Auto) 66.6% (40-74) Lymphocytes (%) (Auto) 21.0% (14-46) Monocytes (%) (Auto) 8.6% (4-12) Eosinophils (%) (Auto) 2.6% (0-5) Basophils (%) (Auto) 0.6% (0-3) Sodium Level 131mEq/L (134-144) Potassium Level 4.3mEq/L (3.5-5.2) Chloride Level 94mEq/L (97-108) Carbon Dioxide Level 25mmol/L (18-29) Blood Urea Nitrogen 29mg/dL (8-27) Creatinine 1.38mg/dL (0.76-1.27) Estimat Glomerular Filtration Rate 55mL/min (>59) Glucose Level 384mg/dL (60-99) Calcium Level 8.6mg/dL (8.5-10.1) Total Bilirubin 1.1mg/dL (0.0-1.2) Aspartate Amino Transf (AST/SGOT) 276U/L (0-50) Alanine Aminotransferase (ALT/SGPT) 201U/L (0-44) Alkaline Phosphatase 94U/L (25-160) Total Protein 6.5g/dL (6.4-8.4) Albumin 3.6g/dL (3.4-5.0) Triglycerides Level 388mg/dL (0-149) Cholesterol Level 135mg/dL (100-199) LDL Cholesterol, Calculated 23.400mg/dL (0-99) VLDL Cholesterol 77.600mg/dL HDL Cholesterol 34mg/dL (>39) Cholesterol/HDL Ratio 3.97 (0.0-4.4) Troponin T 0.026ug/L (0.0-0.011) Denise Diamond MD Jul 14, 2016 13:05
--- NOTE | 2016-07-14 13:06 | PCM.PNMED ---
Subjective Date of Service Subjective Cancel this note Exam Vital Signs Vital Sign - Last Date Time Temp Pulse Resp B/P Pulse Ox O2 Delivery O2 Flow Rate FiO2 07/14/16 10:10 152/79 07/14/16 09:59 61 07/14/16 09:25 36.3 20 96 Room Air Intake and Output 07/13/16 07/13/16 07/14/16 Cumulative From/Thru 15:00 23:00 07:00 07/13/16 18:25 - 07/14/16 00:30 Intake Total 500 ml 500 ml Balance 500 ml 500 ml IV Total 500 ml 500 ml Lab and Diagnostics Result Diagram: 07/14/16 0125 07/14/16 0125 X-Rays, CTs and MRIs Assessment & Plan Resuscitation Status: CPR: Attempt Resuscitation Denise Diamond MD Jul 14, 2016 13:06 COMPARISON: None. FINDINGS: Image quality: Suboptimal due to decreased opacification of the pulmonary arteries Pulmonary arteries: Suboptimal evaluation however the central pulmonary arteries are normal in size, and demonstrate no intraluminal filling defects to suggest pulmonary embolism. Lungs and pleura: No focal consolidation. Scattered groundglass opacities presumably atelectasis. No pleural effusions or pneumothorax. Central and peripheral airways are patent. Mediastinum: Heart size is enlarged, without pericardial effusion. No mediastinal or hilar adenopathy. Thoracic aorta is normal in caliber and enhancement. Esophagus is normal in caliber, without hiatal hernia. Bones and chest wall: No suspicious bony lesions. Ribs and thoracic spine appear intact throughout. Thyroid gland unremarkable. No axillary or supraclavicular adenopathy. Abdomen: Visualized upper abdominal solid organs appear normal in the early arterial phase of enhancement. IMPRESSION: Suboptimal study due to mildly decreased opacification of the pulmonary arteries , however no gross filling defect to suggest pulmonary embolism identified Scattered atelectasis without focal consolidation. Cardiomegaly Dictated by: Devin Chirinos M.D. on 07/13/2016 at 22:01 Approved by: Devin Chirinos M.D. on 07/13/2016 at 22:04 Patient Name: AURORA RUIZ MR#: [id number] Location: [facility] [place] Ordering Phys: Tommy Mckinley MD Date of Service: 07/13/162118 PROCEDURE: CT ABDOMEN WITH CONTRAST ([id number]) INDICATIONS: dyspnea and epigastric pain TECHNIQUE: After the administration of intravenous contrast, 5 mm thick sections acquired from the diaphragm to the iliac crests. 5 mm coronal and sagittal reformats were performed. For radiation dose reduction, the following was used: automated exposure control, adjustment of mA and/or kV according to patient size. COMPARISON: None. FINDINGS: Image quality: Excellent. Lung bases: Lung bases are clear. Heart size is normal. Solid organs: Subcentimeter hypodensity in the liver dome image 14 is too small characterize and technically nonspecific. Otherwise, liver grossly unremarkable. Gallbladder contains multiple gallstones however no definite gallbladder wall thickening or pericholecystic inflammation. There is a 1 mm calcification seen on image 48 series 6 in the region of the distal common bile duct raising the possibility of choledocholithiasis. No definite bili ductal dilatation. Pancreas is grossly unremarkable. Spleen and adrenal glands within normal limits. Nonobstructive left renal calculus measuring 1 mm on image 49. Right kidney grossly unremarkable. No hydronephrosis. Peritoneum and bowel: Bowel loops demonstrate normal wall thickness and caliber. No free fluid or air. Probable pill fragment seen in the distal stomach/proximal duodenum Nodes and vessels: No retroperitoneal or mesenteric adenopathy by size criteria. Aorta and inferior vena cava are normal in size. Miscellaneous: Partially visualized possible midline ventral hernia however incompletely imaged therefore indeterminate. IMPRESSION: Cholelithiasis. In addition, 1 mm calcification is seen in the region of the distal common bile duct in the ampullary segment raising the possibility of choledocholithiasis. However, no biliary ductal dilatation. Recommend correlation to LFTs. Nonobstructive left renal calculus. Dictated by: Devin Chirinos M.D. on 07/13/2016 at 21:56 Approved by: Devin Chirinos M.D. on 07/13/2016 at 22:01 Assessment & Plan Resuscitation Status: CPR: Attempt Resuscitation Denise Diamond MD Jul 14, 2016 13:06
[2016-07-14] MEDS: 0.9% Sodium Chloride 1,000 ML IV SCH (13:24)
--- NOTE | 2016-07-14 13:51 | DRSVH ---
[facility] [address] [place] [address] Echocardiogram Report Name: AURORA RUIZ CStudy Date : 07/14/2016 Height: 72 in Hospital Exam Location: [facility] Weight: 328 lb Gender: Male BSA: 2.6 m2 : 1955 Age: 61 yrs BP: 123/67 m mHg Reason For Study: Chest pain Ordering Physician: HOSPITALIST [facility] Performed By: Xiao Pimentel Referring Physician: Kamille Angel Interpretation Summary 1) Moderate concentric left ventricular hypertrophy with normal size, normal wall motion, and normal systolic function (EF 65-70%). 2) Normal right ventricualr size and function. 3) Grade 2 diastolic dysfunction (pseudonormalization) pattern, consistent with elevated filling pressures. 4) No significant valvular abnormalities except for age related calcification of the aortic and mitral valves. 5) Mildly enlarged ascending aorta (diameter 4.1cm) and mildly enlarged aortic arch (diameter 3.3cm). 6) Systolic pulmonary pressure estimated at 37mmHg, which is borderline elevated. 7) Compared to the Echo done 11/11/2014, no significant change. Procedure: A two-dimensional transthoracic echocardiogram with color flow and Doppler was performed. The study quality was technically adequate. The subcostal views were not obtained due to lack of visualization of anatomy. Comparison is made with the echocardiogram of 11/11/2014. The patient was in normal sinus rhythm during the exam. Left Ventricle: The left ventricle is normal in size. There is moderate concentric left ventricular hypertrophy. The ejection fraction is estimated to be 65-70%. Left ventricular systolic function is normal. There are no focal wall motion abnormalities. Assessment of diastolic parameters suggests a pseudonormalization pattern, consistent with elevated filling pressures. Right Ventricle: The right ventricle is normal in size and function. Atria: There is moderate biatrial enlargement. There is no Doppler evidence for an interatrial shunt. Mitral Valve: There is moderate mitral annular calcification. There is trace mitral regurgitation. Aortic Valve: The aortic valve is mildly calcified. The aortic valve is normal in structure and function. There is no aortic valve stenosis. No aortic regurgitation is present. Tricuspid Valve: The tricuspid valve is normal in structure and function. There is trace tricuspid regurgitation. Right ventricular systolic pressure is estimated to be 37 mmHg plus the clinically estimated CVP which cannot be estimated on this exam. Pulmonic Valve: The pulmonic valve is not well seen, but is grossly normal. There is trace pulmonic regurgitation. Great Vessels: The aortic root is normal size. The ascending aorta is mildly enlarged. The aortic arch is mildly enlarged. The pulmonary artery is normal size. The inferior vena cava was not visualized. Pericardium/ Pleura There is no pericardial effusion. MMode/2D Measurements & Calculations LVIDd: 5.6 cm RA long axis LVOT diam: 2.0 cm LVIDs: 3.5 cm LA A2 area: 27.2 cm Ao root diam FS: 38.3 % LA A4 area: 26.1 cm RA area IVSd: 1.4 cm LA length (vol) asc Aorta Diam LVPWd: 1.4 cm : 29.2 cm LA vol: 81.4 ml RA vol Ao Arch Diam (Prox LA vol index : 110.ml Trans): 3.3 cm RA : 31.0 ml/m2 : 42.1 mm2 LV yu. diameter/BSA LV sys. diameter/BSA RVD1 (basal) RVD2 (mid): 3.0 cm (cm/m^2): 2.1 (cm/m^2): 1.3 Doppler Measurements & Calculations Ao V2 max MV E max toribio MV E/A: 0.92 TR max toribio : 178.2 cm/sec : 122.0 cm/sec Med Peak E' Toribio : 305.9 cm/sec Ao max PG MV A max toribio TR max PG : 12.7 mmHg : 133.3 cm/sec E/E' med: 21.2 : 37.4 mmHg Ao mean PG MV P1/2t: 73.5 msec Pulm A Revs Dur PA V2 max MVA(VTI): 3.0 cm2 : 122.1 cm/sec LVOT Max Toribio MV A dur: 0.13 sec PA mean PG : 126.5 cm/sec REYNOLD(I,D): 2.9 cm PA Accel Time sev ratio : 0.10 sec MV V2 mean MV P1/2t max toribio Ao V2 mean LV V1 max PG : 62.6 cm/sec : 121.0 cm/sec MV mean PG Ao V2 VTI: 40.3 cm LV V1 VTI MVA(P1/2t): 3.0 cm2 : 36.1 cm MV V2 VTI REYNOLD(V,D): 2.3 cm2 MV dec time : 0.25 sec PA V2 mean REYNOLD indexed to BSA Pulm A Revs Dur - MV A : 71.8 cm/sec (cm^2/m^2): 1.1 Dur: -0.01 msec Reading Physician:01:50 PM
--- NOTE | 2016-07-14 14:28 | NUR ---
Social Work-initial assessment: Data:See initial assessment. Pt is a 61 y/o female who was admitted on 07/13/16 for elevated troponin with dyspnea per H&P. Pt's insurance is Medicare and [employer] and PCP is Hallie Kelly MD. EMR Reviewed. Pt's readmission score is not available. SW met with pt, dtr Katrin at bedside to discuss discharge planning, SW role explained. Pt is alert and oriented x3. Pt resides at home with dtr in a single level home with two steps to enter where pt remains independent with basic ADLs, although he noted he has struggling more. Pt uses a 4ww at baseline and drives POV. Pt has no HH or SNF history. Pt has not completed DPOA/ advanced directive and SW provided paperwork to review and complete. Pt's family to provide transport home at discharge. SW provided phone number and plan on white board in room. SW will continue to follow. Assessment:Pt who resides at home with dtr and is independent at baseline. Plan:Pt to likely discharge home with no needs. PT evaluation is pending. SW will continue to follow. KAVIN Aguirre Addendum: 07/14/16 at 1433 by DEB SMITH SS Amended: Links added.
--- NOTE | 2016-07-14 15:33 | NUR ---
Lab MD aware of continued elevation of troponin. No new orders. Pt denies any pain or SOB. VSS. Md notified that MRI will be able to take pt for testing today. MD aware of need for med orders (i.e. insulin).
--- NOTE | 2016-07-14 15:42 | PCM.HPMED ---
Subjective Date of Service Jul 14, 2016 Primary Provider: Admitting Physician: Prashanth Lazaro MD Primary Care Physician: Hallie Kelly MD Attending Physician: Prashanth Lazaro MD Chief Complaint: epigastric pain Allergies Coded Allergies: gabapentin (Verified Allergy, Mild, N/V, 07/13/16) PMH Social History Hx Alcohol Use: No Hx Substance Use: No Smoking Status: Unknown if Ever Smoker Exam Vital Signs Vital Sign - Last Date Time Temp Pulse Resp B/P Pulse Ox O2 Delivery O2 Flow Rate FiO2 07/14/16 14:59 36.7 65 20 154/78 94 Room Air Intake and Output 07/13/16 07/13/16 07/14/16 Cumulative From/Thru 15:00 23:00 07:00 07/13/16 18:25 - 07/14/16 00:30 Intake Total 500 ml 500 ml Balance 500 ml 500 ml IV Total 500 ml 500 ml Lab and Diagnostics Result Diagram: 07/14/16 0125 07/14/16 0125 X-Rays, CTs and MRIs Assessment & Plan error, cancel this dictation Resuscitation Status: CPR: Attempt Resuscitation Denise Diamond MD Jul 14, 2016 15:42
--- NOTE | 2016-07-14 15:52 | NUR ---
MRI Pt down to MRUI at 1545. Stable and w/o complaints. Addendum: 07/14/16 at 1938 by DEEPIKA TRAVIS RN MD notified via cook page at 2720 that pt was unable to complete MRI due to size.
[2016-07-14] MEDS ORDERED: Insulin Human NPH 100 Unit/mL 3 mL Inj SUBQ SCH (16:30)
--- NOTE | 2016-07-14 17:53 | NUR ---
DENZEL explained and signed. Copy of DENZEL and Medicare self administered medication information given to pt.
[2016-07-14] MEDS: Insulin LISPRO 300 Unit/3 mL Inj SUBQ SCH (18:04)
[2016-07-14] MEDS ORDERED: Insulin Human NPH 100 Unit/mL Syringe SUBQ ONE (18:45)
--- NOTE | 2016-07-14 18:46 | CONS ---
[address] [address] CONSULTATION REPORT PATIENT: AURORA RUIZ : 1955 MR#: [id number] ADMIT: 07/13/2016 JOB ID: [id number] DATE OF SERVICE: 07/14/2016 REQUESTING PROVIDER: Le Diamond MD. REASON FOR CONSULTATION: Abnormal liver chemistries. Abnormal imaging. HISTORY OF PRESENT ILLNESS: This is a 61-year-old male, who was admitted yesterday after rather abrupt onset of epigastric pain, quite severe in nature, without radiation, starting around 4:30 and going to about 10 o'clock or so last night. Initial LFTs in the ER were completely normal, as was his lipase. Overnight, as mentioned above, pain completely resolved. He did have a slight bump in his troponin, but there were no acute changes on the EKG observed in the ED. The patient had a CT angio chest because his D-dimer was slightly elevated. He has cardiomegaly, scattered atelectasis without focal consolidation. Study was considered suboptimal due to mildly decreased opacification of the pulmonary artery, however, no gross filling defect to suggest pulmonary emboli identified. He additionally had a CT abdomen, which demonstrated gallstones within the gallbladder. There was no definite gallbladder wall thickening or pericholecystic inflammation. Described was a 1 mm calcification in the region of the distal common duct, raising the possibility of choledocholithiasis, but there is no evidence of any definite biliary ductal dilatation, and the pancreas was considered grossly normal. Overnight, the patient's liver tests, dmitriy to 276 AST and 201 for the ALT. His bilirubin and alkaline phosphatase remain normal. He was sent for an MRCP to further characterize what was being described in the vicinity of the distal common bile duct at CT but was too large to fit in the MR scanner. He remains tolerant of clear liquid diet without recurrent return of pain. REVIEW OF SYSTEMS: He has fairly intense neuropathy and uses chronic opiates for this x15 years. He is starting to get more pain in his legs. He has been afebrile in the hospital. He is tolerant of the liquid diet. He reports that over the last two years he has had some intermittent challenges with swallowing. Things like rice can sometimes become slowed up in his esophagus, and even with attempt at flushing things down with fluid, he can have some difficulty. This will occur about twice a week or so. He otherwise denies any symptoms of gastroesophageal reflux. There is no report of any nausea, vomiting. Because of the opiates, he has a tendency towards constipation and is dependent on regular MiraLAX. Body weight is stable in the last six months. No fevers here in the hospital. He was started on antibiotics this past week for a Staph infection in his leg. The remainder of his review is as per HPI. He had a similar episode of pain some 10 years ago. Review of a CAT scan in January 2007 confirmed the presence of gallstones even back then. He had small umbilical hernias containing fat only, diverticulosis. No bowel obstruction or perforation. He had two indeterminate lesions in the right lobe of the liver and again he was found to have atelectasis. PAST MEDICAL HISTORY: Obesity, neuropathy, heart failure, hypertension, hyperlipidemia, diabetes, chronic pain. SOCIAL HISTORY: The patient denies any alcohol or tobacco use. FAMILY HISTORY: Noncontributory. ALLERGIES: GABAPENTIN. MEDICATIONS: Patient uses regular Vicodin. He has also been started on Augmentin as of this past Saturday. He took a dose on and Saturday. He is written for aspirin, atorvastatin, carvedilol, clonidine, B12, eplerenone, glimepiride, Vicodin, insulin, magnesium chloride, multivitamin, NPH insulin, MiraLAX, Metamucil, Bactrim (in addition to the Augmentin), terazosin, torsemide. PHYSICAL EXAMINATION: Blood pressure 149/75, pulse 66, breathing 20, temperature 36.6, 96% on room air. The patient was in no distress. Alert, oriented, appropriate, cooperative, conversational. He was quite large. Lungs clear bilaterally. Good respiratory effort. Heart regular. He has got significant bilateral lower extremity venous stasis and edema. Abdomen was soft, with a marked amount of excess stored adipose. I did not appreciate any epigastric or right upper quadrant pain or tenderness. LABORATORIES: White count today is 3.5; yesterday was 5.7. His differential is normal. Hemoglobin 11.1, hematocrit 34.2. D-dimer was slightly elevated, as above. Troponins slightly elevated. CK was 142, lactate was 1.4. Creatinine 1.38. Sodium 131, potassium 4.3, chloride 94, bicarb 25, BUN 29, glucose 384. Calcium 8.6. Bilirubin 1.1. AST 276, ALT 201, alk phos 94. Triglycerides 388. Lipase yesterday normal. LFTs yesterday completely normal. Micro" Mo evidence of urinary tract infection. IMAGING: Chest x-ray: No acute disease from yesterday. Chest CT as above. Abdomen CT also described above. I reviewed both of these personally. ASSESSMENT AND RECOMMENDATIONS: This is a 61-year-old male with a prolonged but completely spontaneously resolved abdominal pain in the epigastrium. The etiology is a little unclear and differential remains wide open, but the patient does have longstanding cholelithiasis. There is no suggestion at present that he has any element of cholecystitis. Additionally, even with the bump in LFTs, he does not appear to have any evidence of cholangitis. It is unclear as to whether this reported 1 mm calcification in the region of the distal common bile duct is in any way related to his symptoms. The patient did not report any exposures but standard hepatitis serologies are pending. I think it is unlikely for him to be developing acute hepatitis from the antibiotics in that these were really only started two days prior to symptoms. The possibility of symptomatic gallstones versus choledocholithiasis remains in the differential. For now, I think I would like to see him continue with clear liquid diet. Will repeat liver chemistries and all of his labs tomorrow. If his liver tests persist in the abnormal range, then we could perhaps try to utilize the open MR scanner up in [place] to get better pictures of his biliary tree. Alternatively, I would discuss his case further with the surgery. If the patient indeed does appear as though elective cholecystectomy is in order considering his presentation now (and 10 years ago for that matter), it may be reasonable to consider the cholecystectomy and intraoperative cholangiograms to clear the distal duct of any significant stone debris. At any rate, if his liver tests are significantly falling, I would not be inclined to pursue ERCP at this time. The patient does warrant an outpatient workup for his swallowing challenges that have been going on in the last couple of years. This should likely include EGD and even probably manometry, plus or minus pH data. I will continue to follow. NOTE: This is a no-charge physician visit today. Please do not submit a physician charge for this particular note.
[2016-07-14] MEDS: HYDROcodone-APAP 10-325 mg PO PRN (18:50)
--- NOTE | 2016-07-14 19:38 | NUR ---
Insulin MD paged at 1800 and clarified insulin orders. MD to re order NPH for this evening. Also to order home pain meds.
[2016-07-14] MEDS: cloNIDine 0.1 mg Tablet PO SCH (22:08)
--- NOTE | 2016-07-14 23:48 | NUR ---
Insulin: hospitalist paged X1, and cookfelicity paged X1. No return call. Pt's insulin orders are not what he takes at home, orders also state for pt to dose his own insulin. pt's first blood sugar 244, no insulin given. both pt and RN unsure what dose of humalog to give, because that is not what he uses at home. rechecked blood sugar at 2345, blood sugar 185, RN and pt decided to recheck blood sugar in a few hours and hold off on insulin for now. will continue to monitor.
[2016-07-15 00:18] VITALS: BP 159/78; PULSE 63; RESP 20; O2SAT 95
[2016-07-15] MEDS: 0.9% Sodium Chloride 1,000 ML IV SCH ×2 (03:44→13:45)
[2016-07-15] MEDS: HYDROcodone-APAP 10-325 mg PO PRN (04:00)
[2016-07-15 04:47] VITALS: BP 169/76; PULSE 67; RESP 20; O2SAT 95
[2016-07-15 05:16] LABS: BASOPHILS % (AUTO) 0.5 % (0-3); EOSINOPHILS % (AUTO) 4.2 % (0-5); MONOCYTES % (AUTO) 6.1 % (4-12); Mean Corpuscular Hemoglobin 28.5 pg (27.0-35.0); Mean Corpuscular Volume 86.5 fL (81-100); Platelet Count 182 bil/L (150-400)
[2016-07-15 05:39] LABS: TROPONIN T 0.028 ug/L (0.0-0.011)
[2016-07-15 06:08] LABS: Hepatitis A Antibody IgM Negative (Negative); Hepatitis B Core Antibody IgM Negative (Negative)
--- NOTE | 2016-07-15 06:26 | NUR ---
Tele: pt up to bathroom. pt refuses to wear tele when up to the toilet. This RN explained why it is important to keep tele in place, and attempted to properly secure tele in gown pocket. However pt still refused. will continue to monitor.
[2016-07-15 06:30] VITALS: PULSE 64
[2016-07-15] MEDS ORDERED: Insulin Human NPH 100 Unit/mL Syringe SUBQ SCH ×2 (07:30→08:30)
[2016-07-15] MEDS: Insulin LISPRO 300 Unit/3 mL Inj SUBQ SCH ×2 (09:01→11:32)
[2016-07-15] MEDS: cloNIDine 0.1 mg Tablet PO SCH (09:01)
[2016-07-15 09:10] VITALS: PULSE 65
[2016-07-15 09:29] VITALS: BP 164/85; PULSE 62; RESP 22; O2SAT 94
--- NOTE | 2016-07-15 13:05 | PROG NOTE ---
[address] [address] PROGRESS NOTE PATIENT: AURORA RUIZ : 1955 MR#: [id number] ADMIT: 07/13/2016 JOB ID: [id number] DATE: 07/15/2016 SUBJECTIVE: The patient is doing well. Tolerating his clear liquid diet. He is interested in going home. Liver tests are improved today. We discussed the prospect of an open MRI to further characterize what has been identified or described in the region of the distal CBD versus proceeding with surgical consultation for elective laparoscopic cholecystectomy with intraoperative cholangiograms. At this time, the patient is eager to have surgical consultation to discuss elective cholecystectomy. Currently he is doing quite well clinically and would like to go home. OBJECTIVE: Vital signs are stable. Blood pressures are a little on the elevated side. Otherwise alert, oriented, appropriate, conversational. LABORATORY DATA: White count 4.1, H and H stable. ALT 130, AST 67, bilirubin and alk phos normal. Lipase normal. Hepatitis serology negative. ASSESSMENT AND PLAN: A 61-year-old male with transient epigastric pain of uncertain etiology. He had a transient bump in liver chemistries. All of these are falling. He remains asymptomatic. I think discharge home today would be just fine. I have taken this opportunity to advance his diet to a heart healthy diabetic tray. If he does well with this, then from a GI perspective, he could go. I would recommend surgical consultation but do not feel strongly that it has to be done as an inpatient. This would certainly depend on Dr. Dennis' availability today but may be worth touching base with him before discharge. Otherwise, the patient could go, perhaps with short-term general surgery clinic visit scheduled to discuss this in further detail. The big decision beyond actually going for elective gallbladder removal would be whether to simply schedule the surgery and pursue intraoperative cholangiograms with a view to clearing the duct during the surgery versus arranging for open MRCP in advance of any potential operative intervention. I would leave this to the discretion of the attending surgical provider. In the meantime, we will arrange for EGD with anesthesia to further characterize the intermittent swallowing challenges he has had for the last couple of years. We will plan to do this in the next month or so.
[2016-07-15 13:25] VITALS: BP 180/94; PULSE 57; RESP 20; O2SAT 95
[2016-07-15] MEDS ORDERED: cloNIDine 0.1 mg Tablet PO STA (14:00)
--- NOTE | 2016-07-15 14:11 | PCM.DIMED ---
Discharge Instructions Date of Service Jul 15, 2016 Dates of Hospitalization Jul 13, 2016 at 23:16 Discharge Diagnosis Discharge Diagnosis 1. Acute biliary colic, poa, improving 2. Chronic dysphagia, poa, stable 4. Chronic Troponin elevation of unknown significance, poa, stable 5.type 2 diabetes, insulin using, poa, stable 6. chronic CHF secondary to diastolic dysfunction, poa, stable 7. Stage 3 CKD, poa, stable 8. LAKISHA, poa, stable 9. Hypertension, poa, stable Diet Heart Healthy, Other (avoid any fat in you diet for now) Activity Limited until seen by PCP Call your provider Fever or Chills Patient Instructions 1. Follow up with Dr Magana (gastroenterology) for evaluation of trouble swallowing. 2. Follow up with surgical clinic appointment to discuss your gall bladder stones. 3. Call Dr Kelly's office tomorrow so they can help you set up a MRCP in the open MRI unit in [place]. I will send my summary to their office by tomorrow. Denise Diamond MD Jul 15, 2016 14:11
--- NOTE | 2016-07-15 14:18 | PCM.DC.MED ---
Discharge Summary Date of Service Jul 15, 2016 Dates of Hospitalization Date of Hospital Admission Jul 13, 2016 at 23:16 Date of Discharge: Jul 15, 2016 Providers: Admitting Physician: Prashanth Lazaro MD Primary Care Physician: Hallie Kelly MD Attending Physician: Prashanth Lazaro MD Diagnosis at Time of Discharge Diagnosis at Time of Discharge 1. Acute biliary colic, poa, improving 2. Chronic dysphagia, poa, stable 4. Chronic Troponin elevation of unknown significance, poa, stable 5.type 2 diabetes, insulin using, poa, stable 6. chronic CHF secondary to diastolic dysfunction, poa, stable 7. Stage 3 CKD, poa, stable 8. LAKISHA, poa, stable 9. Hypertension, poa, stable Consultations PATIENT: AURORA RUIZ : 1955 MR#: [id number] ADMIT: 07/13/2016 JOB ID: [id number] DATE OF SERVICE: 07/14/2016 REQUESTING PROVIDER: Le Diamond MD. REASON FOR CONSULTATION: Abnormal liver chemistries. Abnormal imaging. HISTORY OF PRESENT ILLNESS: This is a 61-year-old male, who was admitted yesterday after rather abrupt onset of epigastric pain, quite severe in nature, without radiation, starting around 4:30 and going to about 10 o'clock or so last night. Initial LFTs in the ER were completely normal, as was his lipase. Overnight, as mentioned above, pain completely resolved. He did have a slight bump in his troponin, but there were no acute changes on the EKG observed in the ED. The patient had a CT angio chest because his D-dimer was slightly elevated. He has cardiomegaly, scattered atelectasis without focal consolidation. Study was considered suboptimal due to mildly decreased opacification of the pulmonary artery, however, no gross filling defect to suggest pulmonary emboli identified. He additionally had a CT abdomen, which demonstrated gallstones within the gallbladder. There was no definite gallbladder wall thickening or pericholecystic inflammation. Described was a 1 mm calcification in the region of the distal common duct, raising the possibility of choledocholithiasis, but there is no evidence of any definite biliary ductal dilatation, and the pancreas was considered grossly normal. Overnight, the patient's liver tests, dmitriy to 276 AST and 201 for the ALT. His bilirubin and alkaline phosphatase remain normal. He was sent for an MRCP to further characterize what was being described in the vicinity of the distal common bile duct at CT but was too large to fit in the MR scanner. He remains tolerant of clear liquid diet without recurrent return of pain. REVIEW OF SYSTEMS: He has fairly intense neuropathy and uses chronic opiates for this x15 years. He is starting to get more pain in his legs. He has been afebrile in the hospital. He is tolerant of the liquid diet. He reports that over the last two years he has had some intermittent challenges with swallowing. Things like rice can sometimes become slowed up in his esophagus, and even with attempt at flushing things down with fluid, he can have some difficulty. This will occur about twice a week or so. He otherwise denies any symptoms of gastroesophageal reflux. There is no report of any nausea, vomiting. Because of the opiates, he has a tendency towards constipation and is dependent on regular MiraLAX. Body weight is stable in the last six months. No fevers here in the hospital. He was started on antibiotics this past week for a Staph infection in his leg. The remainder of his review is as per HPI. He had a similar episode of pain some 10 years ago. Review of a CAT scan in January 2007 confirmed the presence of gallstones even back then. He had small umbilical hernias containing fat only, diverticulosis. No bowel obstruction or perforation. He had two indeterminate lesions in the right lobe of the liver and again he was found to have atelectasis. PAST MEDICAL HISTORY: Obesity, neuropathy, heart failure, hypertension, hyperlipidemia, diabetes, chronic pain. SOCIAL HISTORY: The patient denies any alcohol or tobacco use. FAMILY HISTORY: Noncontributory. ALLERGIES: GABAPENTIN. MEDICATIONS: Patient uses regular Vicodin. He has also been started on Augmentin as of this past Saturday. He took a dose on and Saturday. He is written for aspirin, atorvastatin, carvedilol, clonidine, B12, eplerenone, glimepiride, Vicodin, insulin, magnesium chloride, multivitamin, NPH insulin, MiraLAX, Metamucil, Bactrim (in addition to the Augmentin), terazosin, torsemide. PHYSICAL EXAMINATION: Blood pressure 149/75, pulse 66, breathing 20, temperature 36.6, 96% on room air. The patient was in no distress. Alert, oriented, appropriate, cooperative, conversational. He was quite large. Lungs clear bilaterally. Good respiratory effort. Heart regular. He has got significant bilateral lower extremity venous stasis and edema. Abdomen was soft, with a marked amount of excess stored adipose. I did not appreciate any epigastric or right upper quadrant pain or tenderness. LABORATORIES: White count today is 3.5; yesterday was 5.7. His differential is normal. Hemoglobin 11.1, hematocrit 34.2. D-dimer was slightly elevated, as above. Troponins slightly elevated. CK was 142, lactate was 1.4. Creatinine 1.38. Sodium 131, potassium 4.3, chloride 94, bicarb 25, BUN 29, glucose 384. Calcium 8.6. Bilirubin 1.1. AST 276, ALT 201, alk phos 94. Triglycerides 388. Lipase yesterday normal. LFTs yesterday completely normal. Micro" Mo evidence of urinary tract infection. IMAGING: Chest x-ray: No acute disease from yesterday. Chest CT as above. Abdomen CT also described above. I reviewed both of these personally. ASSESSMENT AND RECOMMENDATIONS: This is a 61-year-old male with a prolonged but completely spontaneously resolved abdominal pain in the epigastrium. The etiology is a little unclear and differential remains wide open, but the patient does have longstanding cholelithiasis. There is no suggestion at present that he has any element of cholecystitis. Additionally, even with the bump in LFTs, he does not appear to have any evidence of cholangitis. It is unclear as to whether this reported 1 mm calcification in the region of the distal common bile duct is in any way related to his symptoms. The patient did not report any exposures but standard hepatitis serologies are pending. I think it is unlikely for him to be developing acute hepatitis from the antibiotics in that these were really only started two days prior to symptoms. The possibility of symptomatic gallstones versus choledocholithiasis remains in the differential. For now, I think I would like to see him continue with clear liquid diet. Will repeat liver chemistries and all of his labs tomorrow. If his liver tests persist in the abnormal range, then we could perhaps try to utilize the open MR scanner up in [place] to get better pictures of his biliary tree. Alternatively, I would discuss his case further with the surgery. If the patient indeed does appear as though elective cholecystectomy is in order considering his presentation now (and 10 years ago for that matter), it may be reasonable to consider the cholecystectomy and intraoperative cholangiograms to clear the distal duct of any significant stone debris. At any rate, if his liver tests are significantly falling, I would not be inclined to pursue ERCP at this time. The patient does warrant an outpatient workup for his swallowing challenges that have been going on in the last couple of years. This should likely include EGD and even probably manometry, plus or minus pH data. I will continue to follow. NOTE: This is a no-charge physician visit today. Please do not submit a physician charge for this particular note. Tommy Magana MD 07/14/16 1720 follow up PROGRESS NOTE PATIENT: AURORA RUIZ : 1955 MR#: [id number] ADMIT: 07/13/2016 JOB ID: [id number] DATE: 07/15/2016 SUBJECTIVE: The patient is doing well. Tolerating his clear liquid diet. He is interested in going home. Liver tests are improved today. We discussed the prospect of an open MRI to further characterize what has been identified or described in the region of the distal CBD versus proceeding with surgical consultation for elective laparoscopic cholecystectomy with intraoperative cholangiograms. At this time, the patient is eager to have surgical consultation to discuss elective cholecystectomy. Currently he is doing quite well clinically and would like to go home. OBJECTIVE: Vital signs are stable. Blood pressures are a little on the elevated side. Otherwise alert, oriented, appropriate, conversational. LABORATORY DATA: White count 4.1, H and H stable. ALT 130, AST 67, bilirubin and alk phos normal. Lipase normal. Hepatitis serology negative. ASSESSMENT AND PLAN: A 61-year-old male with transient epigastric pain of uncertain etiology. He had a transient bump in liver chemistries. All of these are falling. He remains asymptomatic. I think discharge home today would be just fine. I have taken this opportunity to advance his diet to a heart healthy diabetic tray. If he does well with this, then from a GI perspective, he could go. I would recommend surgical consultation but do not feel strongly that it has to be done as an inpatient. This would certainly depend on Dr. Dennis' availability today but may be worth touching base with him before discharge. Otherwise, the patient could go, perhaps with short-term general surgery clinic visit scheduled to discuss this in further detail. The big decision beyond actually going for elective gallbladder removal would be whether to simply schedule the surgery and pursue intraoperative cholangiograms with a view to clearing the duct during the surgery versus arranging for open MRCP in advance of any potential operative intervention. I would leave this to the discretion of the attending surgical provider. In the meantime, we will arrange for EGD with anesthesia to further characterize the intermittent swallowing challenges he has had for the last couple of years. We will plan to do this in the next month or so. Tommy Magana MD 07/15/16 1212 Procedures XRay, CTs & MRIs PROCEDURE: CT ANGIO CHEST PULMONARY EMBOLISM ([id number]) INDICATIONS: dyspnea and epigastric pain TECHNIQUE: After the administration of intravenous contrast, 2 mm thick sections acquired from the pulmonary apices to the posterior costophrenic angles. 3-dimensional maximum intensity projection (MIP) coronal and sagittal reformats were then acquired through the thorax. For radiation dose reduction, the following was used: automated exposure control, adjustment of mA and/or kV according to patient size. COMPARISON: None. FINDINGS: Image quality: Suboptimal due to decreased opacification of the pulmonary arteries Pulmonary arteries: Suboptimal evaluation however the central pulmonary arteries are normal in size, and demonstrate no intraluminal filling defects to suggest pulmonary embolism. Lungs and pleura: No focal consolidation. Scattered groundglass opacities presumably atelectasis. No pleural effusions or pneumothorax. Central and peripheral airways are patent. Mediastinum: Heart size is enlarged, without pericardial effusion. No mediastinal or hilar adenopathy. Thoracic aorta is normal in caliber and enhancement. Esophagus is normal in caliber, without hiatal hernia. Bones and chest wall: No suspicious bony lesions. Ribs and thoracic spine appear intact throughout. Thyroid gland unremarkable. No axillary or supraclavicular adenopathy. Abdomen: Visualized upper abdominal solid organs appear normal in the early arterial phase of enhancement. IMPRESSION: Suboptimal study due to mildly decreased opacification of the pulmonary arteries , however no gross filling defect to suggest pulmonary embolism identified Scattered atelectasis without focal consolidation. Cardiomegaly Dictated by: Devin Chirinos M.D. on 07/13/2016 at 22:01 PROCEDURE: CT ABDOMEN WITH CONTRAST ([id number]) Date of Service: 07/13/162118 PROCEDURE: CT ABDOMEN WITH CONTRAST ([id number]) INDICATIONS: dyspnea and epigastric pain TECHNIQUE: After the administration of intravenous contrast, 5 mm thick sections acquired from the diaphragm to the iliac crests. 5 mm coronal and sagittal reformats were performed. For radiation dose reduction, the following was used: automated exposure control, adjustment of mA and/or kV according to patient size. COMPARISON: None. FINDINGS: Image quality: Excellent. Lung bases: Lung bases are clear. Heart size is normal. Solid organs: Subcentimeter hypodensity in the liver dome image 14 is too small characterize and technically nonspecific. Otherwise, liver grossly unremarkable. Gallbladder contains multiple gallstones however no definite gallbladder wall thickening or pericholecystic inflammation. There is a 1 mm calcification seen on image 48 series 6 in the region of the distal common bile duct raising the possibility of choledocholithiasis. No definite bili ductal dilatation. Pancreas is grossly unremarkable. Spleen and adrenal glands within normal limits. Nonobstructive left renal calculus measuring 1 mm on image 49. Right kidney grossly unremarkable. No hydronephrosis. Peritoneum and bowel: Bowel loops demonstrate normal wall thickness and caliber. No free fluid or air. Probable pill fragment seen in the distal stomach/proximal duodenum Nodes and vessels: No retroperitoneal or mesenteric adenopathy by size criteria. Aorta and inferior vena cava are normal in size. Miscellaneous: Partially visualized possible midline ventral hernia however incompletely imaged therefore indeterminate. IMPRESSION: Cholelithiasis. In addition, 1 mm calcification is seen in the region of the distal common bile duct in the ampullary segment raising the possibility of choledocholithiasis. However, no biliary ductal dilatation. Recommend correlation to LFTs. Nonobstructive left renal calculus. Dictated by: Devin Chirinos M.D. on 07/13/2016 at 21:56 Cardiac Echo Impression Echocardiogram Report Name: AURORA RUIZ CStudy Date : 07/14/2016 Height: 72 in Hospital Exam Location: [facility] Weight: 328 lb Gender: Male BSA: 2.6 m2 : 1955 Age: 61 yrs BP: 123/67 m mHg Reason For Study: Chest pain Ordering Physician: [facility]PITAL[facility] Performed By: Xiao Pimentel Referring Physician: Kamille Angel Interpretation Summary 1) Moderate concentric left ventricular hypertrophy with normal size, normal wall motion, and normal systolic function (EF 65-70%). 2) Normal right ventricualr size and function. 3) Grade 2 diastolic dysfunction (pseudonormalization) pattern, consistent with elevated filling pressures. 4) No significant valvular abnormalities except for age related calcification of the aortic and mitral valves. 5) Mildly enlarged ascending aorta (diameter 4.1cm) and mildly enlarged aortic arch (diameter 3.3cm). 6) Systolic pulmonary pressure estimated at 37mmHg, which is borderline elevated. 7) Compared to the Echo done 11/11/2014, no significant change. Brief History 61 y/o with sudden 4 hours epigastric pain goes to ER, pain now gone. CT show gall stones, possible 1mm stone distal CBD, and lft's went up the AM. Patient also had a similar episode here 10 years ago that was from a diagrammatic sudden herniation that correct itself with out intervention. No pain now. Hospital Course 1. acute epigastric abdomianal pain, poa, improved -secondary to biliary colic 2. Acute biliary colic, poa, improving -see GI consult notes above -acute hepatitis panel negative -discharge plan is to arrange for out patient MRCP in an open unit in [place] , patient to call pcp in the morning to help order this test -low fat diet 3. Chronic dysphagia, poa, stable -patient will make appointment with Dr. Magana for work up and possible egd 4. Possible recurrent diaphragmatic acute herniation, poa, active -no evidence on this on CT -seems unlikely, in fact the episode 10 years ago might also have been an episode of biliary colic 5. Chronic Troponin elevation of unknown significance, poa, active -probable secondary to CKD -CPK negative -echo normal this visit 6.type 2 diabetes, insulin using, poa, stable -home dose 50 bid nph plus short acting insulin -resume home insulin regime -HbA1C = 7 7. chronic CHF secondary to diastolic dysfunction, poa, stable -Adjust diuretics as needed 8. Stage 3 CKD, poa, active -discharge creatinine 1.03 9. LAKISHA, poa, stable -use own cpap art night here 10. Hypertension, poa, stable Exam Vital Signs (Last) Date Time Temp Pulse Resp B/P Pulse Ox O2 Delivery O2 Flow Rate FiO2 4/9/17 13:25 36.8 57 20 180/94 95 Room Air Exam Eyes; jeremy, eom intact ENMT; good hydration no lession CV; no murmur, regular Resp; clear anteriorly GI; benign, no significant abdominal tenderness or pain Skin; small papular bumps anterior chest Neuro; 2-12 intact, no focal neuro defects, neuropathy Test 07/13/16 18:20 07/13/16 19:31 07/14/16 01:25 07/14/16 14:05 D-Dimer 0.83mg/L FEU (<0.50) Magnesium Level 2.2mg/dL (1.6-2.6) Urine Color Yellow (YELLOW) Urine Appearance Clear (CLEAR,HAZY) Urine pH 6.0 (5.0-8.0) Urine Specific [place] 1.010 (1.003-1.035) Urine Protein Negativemg/dL (NEG,TRACE) Urine Glucose (UA) Negativemg/dL (NEGATIVE) Urine Ketones Negativemg/dL (NEGATIVE) Urine Occult Blood Negative (NEGATIVE) Urine Nitrite Negative (NEGATIVE) Urine Bilirubin Negative (NEGATIVE) Urine Urobilinogen Normalmg/dL (NORMAL) Urine Leukocyte Esterase Negative (NEGATIVE) Urine RBC 0-2/hpf (0-2) Urine WBC 0-5/hpf (0-5) Urine Epithelial Cells Occasional/hpf (NONE-MOD) Urine Crystals None seen (NONE SEEN) Urine Bacteria None/hpf (NONE-FEW) Urine Hyaline Casts Occasional/lpf (NONE) Urine Granular Casts None seen (NONE SEEN) Urine Waxy Casts None seen (NONE SEEN) Urine Red Blood Cell Casts None seen (NONE SEEN) Urine White Blood Cell Casts None seen (NONE SEEN) Urine Mucus None seen (None Seen) Urine Trichomonas None seen (NONE SEEN) Urine Yeast None (NONE SEEN) Urine Culture Reflexed Not indicated Triglycerides Level 388mg/dL (0-149) Cholesterol Level 135mg/dL (100-199) LDL Cholesterol, Calculated 23.400mg/dL (0-99) VLDL Cholesterol 77.600mg/dL HDL Cholesterol 34mg/dL (>39) Cholesterol/HDL Ratio 3.97 (0.0-4.4) Hemoglobin A1c 7.0% (4.8-5.6) Hepatitis A IgM Antibody Negative (Negative) Hepatitis B Surface Antigen Negative (Negative) Hepatitis B Core IgM Antibody Negative (Negative) Hepatitis C Antibody <0.1s/co ratio (0.0-0.9) Hepatitis C Comment Comment (.) Test 07/15/16 05:05 White Blood Count 4.1th/mm3 (3.8-10.1) Red Blood Count 4.14mil/mm3 (4.40-5.80) Hemoglobin 11.8g/dL (13.8-17.2) Hematocrit 35.8% (41.0-50.0) Mean Corpuscular Volume 86.5fL (81-100) Mean Corpuscular Hemoglobin 28.5pg (27.0-35.0) Mean Corpuscular Hemoglobin Concent 33.0% (32.0-37.0) Red Cell Distribution Width 15.3% (12.3-15.4) Platelet Count 182bil/L (150-400) Neutrophils (%) (Auto) 64.0% (40-74) Lymphocytes (%) (Auto) 24.5% (14-46) Monocytes (%) (Auto) 6.1% (4-12) Eosinophils (%) (Auto) 4.2% (0-5) Basophils (%) (Auto) 0.5% (0-3) Sodium Level 137mEq/L (134-144) Potassium Level 4.2mEq/L (3.5-5.2) Chloride Level 100mEq/L (97-108) Carbon Dioxide Level 22mmol/L (18-29) Blood Urea Nitrogen 18mg/dL (8-27) Creatinine 1.03mg/dL (0.76-1.27) Estimat Glomerular Filtration Rate 78mL/min (>59) Glucose Level 206mg/dL (60-99) Lactic Acid Level 1.6mmol/L (0.4-2.0) Calcium Level 9.0mg/dL (8.5-10.1) Total Bilirubin 1.0mg/dL (0.0-1.2) Aspartate Amino Transf (AST/SGOT) 67U/L (0-50) Alanine Aminotransferase (ALT/SGPT) 130U/L (0-44) Alkaline Phosphatase 91U/L (25-160) Total Creatine Kinase 141U/L (21-232) Troponin T 0.028ug/L (0.0-0.011) Total Protein 6.9g/dL (6.4-8.4) Albumin 4.0g/dL (3.4-5.0) Lipase 47U/L (13-60) Followup Plan Discharge Diet: Heart Healthy, Other (avoid any fat in you diet for now) Discharge Activity: Limited until seen by PCP Patient Instructions 1. Follow up with Dr Magana (gastroenterology) for evaluation of trouble swallowing. 2. Follow up with surgical clinic appointment to discuss your gall bladder stones. 3. Call Dr Kelly's office tomorrow so they can help you set up a MRCP in the open MRI unit in [place]. I will send my summary to their office by tomorrow. Time spent 45 minutes time spent discharging this patient today, current time is 2:30 pm copies to: Hallie Kelly MD; Tommy Magana MD, D Geoffrey MD Jul 15, 2016 14:18
--- NOTE | 2016-07-15 14:49 | NUR ---
Social Work-Discharge: Data:EMR reviewed. Pt is on day 2 of hospitalization for elevated troponin with dyspnea per H&P. Pt is medically cleared for discharge and is up and independent in room. Pt's family to provide transport home at discharge. SW provided phone number and plan on white board in room. SW will continue to follow. Assessment:Pt who resides at home with dtr and is independent at baseline. Plan:Pt to likely discharge home with no needs. PT evaluation is pending. SW will continue to follow. KAVIN Aguirre
--- NOTE | 2016-07-15 15:25 | NUR ---
Discharge Patient discharge to home with all belongings. Explained to patient when next medication are due and discharge instructions. Patient verbalized understanding. Dc'd IV intact. Dc'd telemetry. Vitals stable. 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
[2016-07-20] MEDS ORDERED: ASPI325T32 PO (16:19)
[2016-07-20] MEDS ORDERED: GLIM4TAB PO (16:19)
[2016-07-20] MEDS ORDERED: NPH,100V10 SUBQ (16:19)
[2016-07-20] MEDS ORDERED: MULT-1018 PO (16:19)
[2016-07-20] MEDS ORDERED: CARV25TA2 PO (16:19)
[2016-07-20] MEDS ORDERED: INSU100V27 SQ (16:19)
[2016-07-20] MEDS ORDERED: LIP40 PO (16:19)
[2016-07-20] MEDS ORDERED: MAGN64TA7 PO (16:19)
[2016-07-20] MEDS ORDERED: CLON0.1T PO (16:19)
[2016-07-20] MEDS ORDERED: TERA5CAP6 PO (16:19)
[2016-07-20] MEDS ORDERED: [UNRECOGNIZED DRUG - CODE] TP (16:19)
[2016-07-20] MEDS ORDERED: AMOX-366 PO (16:19)
[2016-07-20] MEDS ORDERED: EPLE25TA3 PO (16:19)
[2016-07-20] MEDS ORDERED: TORS20TA3 PO ×3 (16:19)
[2016-07-20] MEDS ORDERED: HYDR-3740 PO (16:19)
== END 2016-07-15 15:03 | disposition home or self-care (01) ==
LOC: SED 18:13 → MPC 23:16 → INTOOBSV 23:16 → OBSVTOIN 23:16
PROVIDERS: ADMIT Family Medicine; ATTEND Family Medicine
DX: K80.50 Calculus of bile duct without cholangitis or cholecystitis without obstruction (principal); R13.10 Dysphagia, unspecified; R79.89 Other specified abnormal findings of blood chemistry; E11.9 Type 2 diabetes mellitus without complications; Z79.4 Long term (current) use of insulin; I50.30 Unspecified diastolic (congestive) heart failure; N18.3 Chronic kidney disease, stage 3 (moderate); I12.9 Hypertensive chronic kidney disease with stage 1 through stage 4 chronic kidney disease, or unspecified chronic kidney disease; G47.33 Obstructive sleep apnea (adult) (pediatric); G62.9 Polyneuropathy, unspecified; Z79.891 Long term (current) use of opiate analgesic
CPT/HCPCS: 36415; 71010; 71275; 74160; 80053; 80061; 81000; 82550; 83036; 83605; 83690; 83735; 84484; 85025; 85378; 86705; 86709; 87340; 87341; 93005; 96361; 96374; 96375; 99285; C8929; G0378; G0472; J1170; J1650; J1815; J2405; J7030; J7040; Q9967

== ENCOUNTER 2016-07-25 07:06 | Day surgery (SDC) | payer MEDICARE, OTHER ==
[~2016-07-25] VITALS: Ht 182.9 cm; Wt 147.9 kg
[~2016-07-25 07:06] MED LIST changes: +AMOX-366 PO; +ASPI325T32 PO; +CARV25TA2 PO; +CLON0.1T PO; +EPLE25TA3 PO; +GLIM4TAB PO; +HYDR-3740 PO; +INSU100V27 SQ; +LIP40 PO; +Lactated Ringer's 1,000 ML IV SCH; +MAGN64TA7 PO; +MULT-1018 PO; +NPH,100V10 SUBQ; -SULF1TAB7 PO; +TERA5CAP6 PO; +[UNRECOGNIZED DRUG - CODE] TP
[2016-07-25 07:51] VITALS: BP 147/76; PULSE 69; RESP 14; O2SAT 93
--- NOTE | 2016-07-25 10:14 | PCM.ANEPRE ---
Anesthesia Pre-Op Review Additional Comments 61 M with multiple co-morbidities including IDDM, CHF on high dose diuretics, LVH, morbid obesity, scheduled who was scheduled for a lap clara today, which was cancelled until further cardiac work-up is performed. The patient had a recent hospitalization due to epigastric pain. There was an incomplete work-up to diagnose the etiology in part due to the patient not fitting into the MRI machine for an MRCP. During his admission he had elevated troponins with reportedly unremarkable ECG. A TTE at the time showed no signs of WMA, but did show diastolic CHF and LVH. Reviewing his cardiac history he had a nuclear stress test approx 7 years ago which was suggestive of mild ischemia. He has really not had any provocative stressing of his heart in the interim. He has less than 4 mets and has minimal activity, he has not had a repeat stress test and he has not had any recent surgeries. In the context of multiple co-morbidities, LVH, CHF, abnormal stress test 7 years ago without a repeat, recent unclear troponin elevation, that his heart function may be adequate for surgery at rest and without stress, but that we don 't know how it will respond to the stress of surgery and anesthesia and that there are risk factors and historical findings suggestive that he is at risk for his heart having induced ischemia with stress. I discussed the case with Dr. Christian and the pt. Dr. Christian agreed that this surgery is not urgent as of now and that we have time to do further testing. The pt, while frustrated with the day of cancelation, also understands the need to proceed safely and does not want to proceed if further testing is warranted. We have cancelled the surgery today. He should see his lastex operator for further pre-op evaluation and testing recommendations. He has seen Dr. Angel as of 05/25, but it was not in the context of surgery nor in the context of epigastric pain and troponin elevation. Jakob Pugh MD Jul 25, 2016 10:14
--- NOTE | 2016-07-25 10:16 | PCM.HPANE ---
Patient Data Surgeon Admitting Provider: Attending Provider:Shannan Christian MD Primary Care Physician:Hallie Kelly MD Other Provider:Garrick Redding Anesthesia Reason for Visit Biliary Colic Ht/WT & BMI Height (Feet): 6 Height (Inches): 0.00 Weight (Kilograms): 147.870 Body Mass Index 44.00 Allergies Coded Allergies: gabapentin (Verified Allergy, Mild, N/V, 07/13/16) Past Anesthesia History Anesthesia History: Denies:: Anesthesia Reactions (prolonged anes at age 13- rebuilt foot "2 full days" ), Fam Anesthesia Reaction Diabetes History Hx Diabetes?: Yes Type of Diabetes: Type II Glycemic Control: Insulin Dependent MRSA MRSA: No Medications Blood Thinner: Aspirin Hypertension Medication: Yes Home Meds Incl Beta Pacheco: Yes Date Beta Pacheco Taken: Jul 25, 2016 Time Beta Pacheco Taken: 0650 Reported Medications Torsemide 20 Mg Odgqfk29 Mg PO QPM 30 Days Ref 0 07/20/16 Torsemide 20 Mg Chmzkg68 Mg PO midday 30 Days Ref 0 07/20/16 Torsemide 20 Mg Sznsqe58 Mg PO QAM 30 Days Ref 0 07/20/16 Terazosin 5 Mg Capsule5 Mg PO HS Ref 0 07/20/16 Insulin Regular, Human (Novolin-R U100 Insulin Vial)100 Unit/1 Ml Dnne151 Unit SQ TID #1 VIAL Ref 0 07/20/16 NPH, Human Insulin Isophane (Novolin-N U100 Insulin Vial)100 Unit/1 Ml Vial60 Unit SUBQ BID #1 VIAL Ref 0 07/20/16 Multivitamin (Multi Vitamin Daily)1 Each Tablet1 Each PO DAILY 30 Days Ref 0 07/20/16 Magnesium Chloride (Mag64)64 Mg Tablet.er64 Mg PO BID 07/20/16 Hydrocodone-Acetaminophen 10-325 mg 1 Each Tablet1-2 Tablet PO Q6H PRN For Pain Ref 0 07/20/16 Eplerenone 25 Mg Axvfgq89 Mg PO DAILY 07/20/16 Clonidine 0.1 Mg Tablet0.1 Mg PO BID Ref 0 07/20/16 Carvedilol 25 Mg Kdnkcf26 Mg PO BID Ref 0 07/20/16 Atorvastatin (Lipitor)40 Mg Mutegc46 Mg PO DAILY Ref 0 07/20/16 Aspirin 325 Mg Tylfgt202 Mg PO TID #1 BOTTLE 4/14/17 Glimepiride (Amaryl)4 Mg Tablet4 Mg PO DAILY 07/20/16 Discontinued Reported Medications Dimethicone (Remedy Cleansing Body)946 Ml Duxlwlbk227 Ml TP BID 07/20/16 Amoxicillin/Clav K 875-125 mg (Augmentin 875-125 mg)1 Each Tablet1 Tablet PO BID #20 TABLET Ref 0 07/20/16 History History of ENT Problems?: No HEENT History: Positive for:: Hearing Problem (no hearing aides- cannot afford ) Denies:: Cataracts Dysphagia Glaucoma Sinus Problem Teeth Condition: Broken Teeth Hx of Heart Problems?: Yes Cardiovascular History: Positive for:: Chest Pain Congestive Heart Failure Edema (lower leg- on torsemide) Hypertension Irregular Heartbeat (occ palpitations) Peripheral Vascular (chronic stasis dermatitis, wounds legs, currently closed) Denies:: Cardiac Surgery Heart Murmur Pacemaker Thrombophlebitis Hx of Respiratory Problem?: Yes Respiratory History: Positive for:: Use of C-PAP Machine Denies:: Oxygen Administration Pneumonia Tuberculosis Use of Inhalers / NEBS Other Resp Pertinent History: remote hx of sarcoid- took 8 months prednisone and was "cured" about 34 years Hx Neurologic Problems?: No Neurological History: Denies:: CVA Headaches Multiple Sclerosis Parkinson's Disease Seizures Other Neurological Pertinent: "tippy" with neuropathy- uses cane for ambulation Hx of GI Problems?: Yes Gastrointestinal History: Positive for:: Gall Bladder Disease (current admission problem) Hiatal Hernia (diaphragmatic hernia) Denies:: Diverticulitis Gastroesphageal Reflux (past rx for- no longer takes ) Gastrointestinal Bleeding Heartburn Hepatitis Hx of Problems?: Yes Genitourinary History: Positive for:: HX of Hemodialysis (CKD stage III ) Denies:: Kidney Stones Urinary Tract Infection Male Hx: Denies:: Prostate Problems Skin History: Positive for:: History Skin Disorders? 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 Denies:: Blood Transfusions Hx Diabetes: Yes Hx Alcohol Use: NoHx Substance Use: No Smoking Status: Unknown if Ever Smoker Have You Smoked inLast 12 mo: No Stop/Bang P-Blood Pressure: treated: Yes B- Body Mass Index > 35 kg/m2: Yes A- Age over 50: Yes N- Neck Large Circumference: Yes G- Gender Male: Yes Risk Assessment Category Category 1A: Patient has history of documented sleep apnea, and HAS NOT received any narcotic, sedative or anesthesia administration during this stay. Category 1B: Patient has history of documented sleep apnea, and HAS received any narcotic , sedative or anesthesia administration during this stay Category 2: Patient has SUSPECTED Obstructive Sleep Apnea, and HAS received any narcotic , sedative or anesthesia administration during this stay. Category 3: Patient has SUSPECTED Obstructive Sleep Apnea and HAS NOT received narcotic, sedative or anesthesia administration during this stay. Category 4: Outpatient in Procedural Areas with known sleep apnea or who screen positive for High Risk via the STOP/BANG questionnaire. Exam Exam Vital Signs Vital Signs Date Time Temp Pulse Resp B/P Pulse Ox O2 Delivery O2 Flow Rate FiO2 07/25/16 07:58 CPAP/BIPAP 07/25/16 07:51 36.1 69 14 147/76 93 Room Air General Appearance: Alert, Oriented X3, Cooperative, No Acute Distress HEENT/AIRWAY: MP 2 Lungs: Clear to Auscultation, Normal Air Movement Heart: Exam Unremarkable, Regular Rate/Rhythm, No Murmurs/Rubs/Gallops Meds/Labs/Diagnostics Admission Meds Current Medications Lactated Ringer's (Lr) 1,000 ml @ 120 mls/hr Q8H20M IV Last administered on t 07:26; Start 07/25/16 at 05:00; Stop 07/25/16 at 13:19 Plan Impression Patient chart reviewed, patient interviewed and anesthestic plan with risks, benefits, and alternatives discussed, and informed consent obtained. Gilbert Juarez MD Jul 25, 2016 10:15
== END 2016-07-25 23:59 | disposition home or self-care (01) ==
LOC: SAS 07:06
PROVIDERS: ATTEND Surgery
DX: K80.50 Calculus of bile duct without cholangitis or cholecystitis without obstruction (principal); Z53.09 Procedure and treatment not carried out because of other contraindication; I50.30 Unspecified diastolic (congestive) heart failure; E11.42 Type 2 diabetes mellitus with diabetic polyneuropathy; E11.22 Type 2 diabetes mellitus with diabetic chronic kidney disease; I12.9 Hypertensive chronic kidney disease with stage 1 through stage 4 chronic kidney disease, or unspecified chronic kidney disease; N18.3 Chronic kidney disease, stage 3 (moderate); Z79.4 Long term (current) use of insulin; G47.33 Obstructive sleep apnea (adult) (pediatric); E66.01 Morbid (severe) obesity due to excess calories; Z68.41 Body mass index [BMI] 40.0-44.9, adult

== ENCOUNTER 2016-08-28 09:58 | Day surgery (SDC) | payer MEDICARE, OTHER ==
[~2016-08-28] VITALS: Ht 182.9 cm; Wt 145.0 kg
[~2016-08-28 09:58] MED LIST changes: -AMOX-366 PO; -Lactated Ringer's 1,000 ML IV SCH; -[UNRECOGNIZED DRUG - CODE] TP
[2016-08-28] MEDS ORDERED: Glycopyrrolate 0.2 MG/ML 1mL Inj ONE (09:59)
[2016-08-28] MEDS ORDERED: Ketamine 10 mg/mL 20 mL Inj ONE (09:59)
[2016-08-28] MEDS ORDERED: Propofol 10,000 mCg/mL 20 mL Inj ONE (09:59)
[2016-08-28 10:29] VITALS: BP 157/86; PULSE 63; RESP 16; O2SAT 97
--- NOTE | 2016-08-28 10:51 | PCM.HPANE ---
Patient Data Date of Service: August 28, 2016 Surgeon Admitting Provider: Attending Provider:Tommy Magana MD Primary Care Physician:Hallie Kelly MD Other Provider:Garrick Redding Anesthesia Reason for Visit Dysphagia Ht/WT & BMI Height (Feet): 6 Weight (Kilograms): 145 Body Mass Index 43.00 Allergies Coded Allergies: gabapentin (Verified Allergy, Mild, N/V, 07/13/16) Past Anesthesia History Anesthesia History: Denies:: Abnormal Airway, Anesthesia Reactions (prolonged anes at age 13- rebuilt foot "2 full days" ), Difficult Intubation, Fam Anesthesia Reaction, Fam Malignant Hypertherm, Malignant Hyperthermia Diabetes History Hx Diabetes?: No Type of Diabetes: Type II Glycemic Control: Insulin Dependent Current Bedside Blood Glucose: 108 MRSA MRSA: No Medications Blood Thinner: Aspirin Last Dose Blood Thinner: August 28, 2016 Home Meds Incl Beta Pacheco: Yes Date Beta Pacheco Taken: August 28, 2016 Time Beta Pacheco Taken: 0630 Reported Medications Torsemide 20 Mg Mzxhvs93 Mg PO QPM 30 Days Ref 0 07/20/16 Torsemide 20 Mg Yhskko56 Mg PO midday 30 Days Ref 0 07/20/16 Torsemide 20 Mg Zmpczm86 Mg PO QAM 30 Days Ref 0 07/20/16 Terazosin 5 Mg Capsule5 Mg PO HS Ref 0 07/20/16 Insulin Regular, Human (Novolin-R U100 Insulin Vial)100 Unit/1 Ml Nxic755 Unit SQ TID #1 VIAL Ref 0 07/20/16 NPH, Human Insulin Isophane (Novolin-N U100 Insulin Vial)100 Unit/1 Ml Vial60 Unit SUBQ BID #1 VIAL Ref 0 07/20/16 Multivitamin (Multi Vitamin Daily)1 Each Tablet1 Each PO DAILY 30 Days Ref 0 07/20/16 Magnesium Chloride (Mag64)64 Mg Tablet.er64 Mg PO BID 07/20/16 Hydrocodone-Acetaminophen 10-325 mg 1 Each Tablet1-2 Tablet PO Q6H PRN For Pain Ref 0 07/20/16 Eplerenone 25 Mg Sngzer16 Mg PO DAILY 07/20/16 Clonidine 0.1 Mg Tablet0.1 Mg PO BID Ref 0 07/20/16 Carvedilol 25 Mg Kuxdnt75 Mg PO BID Ref 0 07/20/16 Atorvastatin (Lipitor)40 Mg Wtoavg77 Mg PO DAILY Ref 0 07/20/16 Aspirin 325 Mg Fwplrr027 Mg PO TID #1 BOTTLE 07/20/16 Glimepiride (Amaryl)4 Mg Tablet4 Mg PO DAILY 07/20/16 History History of ENT Problems?: No HEENT History: Positive for:: Dysphagia Hearing Problem (no hearing aides- cannot afford) Denies:: Abnormal Airway Cataracts Difficult Intubation Sinus Problem Denture Type: None Teeth Condition: Broken Teeth Tooth Decay Missing Teeth Hx of Heart Problems?: Yes Cardiovascular History: Positive for:: Chest Pain (c/o R subcostal discomfort , sharp pain lasted 1 hr) Congestive Heart Failure Edema (lower leg- on torsemide) Hypertension Irregular Heartbeat (occ palpitations) Denies:: AICD Cardiac Surgery Heart Murmur Pacemaker Thrombophlebitis Valvular Heart Disease Other Cardiac History: CHF, no orthopnea, no PND Hx of Respiratory Problem?: Yes Respiratory History: Positive for:: Use of C-PAP Machine Denies:: Oxygen Administration Pneumonia Tuberculosis Hx Neurologic Problems?: No Neurological History: Denies:: CVA Headaches Multiple Sclerosis Parkinson's Disease Seizures TIA Hx of GI Problems?: Yes Other GI Pertinent History: acute on chronic cholecystitis Hx of Problems?: Yes Genitourinary History: Positive for:: HX of Hemodialysis (CKD stage III ) Denies:: Kidney Stones Urinary Tract Infection Male Hx: Denies:: Prostate Problems Skin History: Positive for:: History Skin Disorders? 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 ) Denies:: Fibromyalgia Joint Replacement Systemic Lupus Hx of Psycho/Social Problems?: No Psycho Social History: Positive for:: Anxiety Hx Depression Hx Surgeries?: Yes (14 different- appendectomy, carpal tunnel, trigger thumb, sinus) Hx Any Other Health Problems?: Yes Other History: Denies:: Cancer Hospitalization Thyroid Disease History Blood Transfusions: Denies:: Blood Transfusions Hx Diabetes: NoBedside Blood Glucose: 108 Hx Alcohol Use: NoHx Substance Use: No Smoking Status: Former Smoker (age 17) Have You Smoked inLast 12 mo: No Stop/Bang Treated for Sleep Apnea?: Yes Do You Have a CPAP Machine?: Yes LAKISHA Risk Assessment: High Risk, =/>3 Yes LAKISHA Category 1: Yes Risk Assessment Category Category 1A: Patient has history of documented sleep apnea, and HAS NOT received any narcotic, sedative or anesthesia administration during this stay. Category 1B: Patient has history of documented sleep apnea, and HAS received any narcotic , sedative or anesthesia administration during this stay Category 2: Patient has SUSPECTED Obstructive Sleep Apnea, and HAS received any narcotic , sedative or anesthesia administration during this stay. Category 3: Patient has SUSPECTED Obstructive Sleep Apnea and HAS NOT received narcotic, sedative or anesthesia administration during this stay. Category 4: Outpatient in Procedural Areas with known sleep apnea or who screen positive for High Risk via the STOP/BANG questionnaire. Exam Exam Vital Signs Vital Signs Date Time Temp Pulse Resp B/P Pulse Ox O2 Delivery O2 Flow Rate FiO2 08/28/16 10:29 36.6 63 16 157/86 97 Room Air General Appearance: Alert, Oriented X3, Cooperative, No Acute Distress HEENT/AIRWAY: MP 3, Neck Movement (from), Mouth Opening (3), Other (tmd3) Lungs: Diminished Heart: Exam Unremarkable, Regular Rate/Rhythm, Normal S1, Normal S2, No Murmurs /Rubs/Gallops Additional Information chronic venous stasis changes BLE, 3+ pitting edema Meds/Labs/Diagnostics Bedside Blood Glucose: 108 Plan Impression Patient chart reviewed, patient interviewed and anesthestic plan with risks, benefits, and alternatives discussed, and informed consent obtained. NPO per Anesth. Guidelines: Yes ASA Physical Status: ASA4 Life Threatening Anesthetic Plan: TIVA Bene/Risks/Altern/Consents: Yes HP Complete Prior to Induction: Yes Jose Cook MD August 28, 2016 10:51
[2016-08-28] MEDS: Lactated Ringer's 1,000 ML IV ONE ×2 (10:59→11:18)
[2016-08-28 11:29] VITALS: BP 144/72; PULSE 69; RESP 16; O2SAT 95
[2016-08-28 11:39] VITALS: BP 151/70; PULSE 73; RESP 14; O2SAT 97
--- NOTE | 2016-08-28 11:40 | ENDO ---
[address] [address] ENDOSCOPY PROCEDURE PATIENT: AURORA RUIZ : 1955 MR#: [id number] ADMIT: 08/28/2016 JOB ID: [id number] DATE OF PROCEDURE: 08/28/2016 PRIMARY PROVIDER: Hallie Kelly MD PROCEDURE: Esophagogastroduodenoscopy with biopsy. INDICATIONS: A 61-year-old male with intermittent dysphagia; worse over the last year. This can be to both liquids and solids. The patient denies any symptoms of actual reflux. EQUIPMENT: [id number]. SEDATION: Monitored anesthesia as provided by Dr. Jose Cook. COMPLICATIONS: None identified. PROCEDURE INFORMATION: After the risks and benefits were explained, written and verbal informed consent was obtained. The patient was brought into the endoscopy suite and placed into the left lateral decubitus position. Sedation was achieved using the above-stated medications with the addition of oxygen via nasal cannula. The scope was introduced into the mouth through the bite block, and advanced under direct visualization through the oropharynx, esophagus, stomach, and onto the second portion of the duodenum. The scope was slowly withdrawn to carefully examine the mucosa for any defects or lesions. Retroflexed views were accomplished in the stomach. The stomach was decompressed. The scope removed from the patient who tolerated the procedure well. FINDINGS: 1. Duodenum: No significant mucosal pathology from the bulb through to the second portion. 2. Stomach: No mass lesions. No outlet obstruction. The patient had several scattered superficial ulcerative changes all throughout the antrum and prepyloric region consistent with NSAID induced injury. A small biopsy was taken from one of these areas to exclude Helicobacter or any other underlying histopathology. Otherwise, the gastric mucosa was relatively unremarkable including retroflexed views of the LES. 3. Esophagus: The squamocolumnar junction correlated with the top of the gastric folds. The GEJ was at 44 cm from the incisors. No acute erosive changes. No strictures. No mass lesions. No esophageal pathology to account for the patient's swallowing complaints. ENDOSCOPIC DIAGNOSES: 1. Ulcerative gastropathy. 2. Otherwise visually unremarkable esophagogastroduodenoscopy. RECOMMENDATIONS: 1. As long as the patient continues aspirin, I would recommend concomitant prophylaxis with proton pump inhibitor in light of this superficial peptic ulcer disease seen today. 2. If Helicobacter is found, it will need to be eradicated with standard triple therapy. 3. Esophageal manometry is pursued today in light of the patient's complaints. Follow up in my office in a week or so after the manometry.
[2016-08-28 11:41] VITALS: BP 142/66; PULSE 69; RESP 16; O2SAT 95
--- NOTE | 2016-08-28 12:48 | PCM.ANEP1 ---
Post Anesthesia PACU Phase 1 Assessment Date of Service: August 28, 2016 Vital Signs Vital Signs Date Time Temp Pulse Resp B/P Pulse Ox O2 Delivery O2 Flow Rate FiO2 08/28/16 11:41 69 16 142/66 95 Room Air 08/28/16 11:39 73 14 151/70 97 Room Air 08/28/16 11:29 69 16 144/72 95 Nasal Cannula 4 08/28/16 10:29 36.6 63 16 157/86 97 Room Air Anesthetic Administered: TIVA Level of Alertness: Awake, talking MIRANDA's with Equal Strength: Yes (BASELINE) Pain: No Pain Scale Score: 0 Nausea or Vomiting: No CV Function and Hydration: Yes Airway Device: none Lungs: Diminished PACU Phase 2 Assessment Complications: No Follow up Care: No Patient Instructions Provided: Yes Comments 08/28/16 11:41 69 16 142/66 95 Room Air Jose Cook MD August 28, 2016 12:48
--- NOTE | 2016-08-29 17:43 | PATH ---
SURGICAL PATHOLOGY Attending Physician:Shelley Grijalva CASE STATUS: Signed Out PATIENT NAME: AURORA RUIZ PID: [id number] : 1955 DATE COLLECTED:08/28/2016 22:50 SPECIMEN: Stomach, Antrum, Biopsy CLINICAL HISTORY: 1). ANTRAL BIOPSY FINAL DIAGNOSIS: 1.ANTRAL BIOPSY: Gastric antral mucosa with mild chronic active gastritis and features of reactive gastropathy. No H. pylori organisms identified by H&E stain. Immunohistochemistry studies pending; results will be reported as an addendum. Negative for intestinal metaplasia, dysplasia, and malignancy. [id number] GROSS DESCRIPTION: The specimen is received in one formalin filled container labeled with the patient's name, sublabeled "antral" and consists of a 0.3 x 0.2 x 0.2 CM portion of tissue which is entirely submitted in one cassette. 08/29/2016 DAC MICRO DESCRIPTION: See diagnosis. ICD-9 CODES: CPT CODES: 1: 35877, 02627 PROCEDURE/ADDENDA: Immunohistochemistry SPI Interpretation {Not Entered} Results-Comments This addendum is issued to report the results of the immunhistochemistry studies for Helicobacter pylori. The gastric mucosa is stained with monoclonal antibody to Helicobacter pylori (SP48). Positive and negative controls stain appropriately. Result: The patient tissue shows no staining. Interpretation: The gastric mucosa is negative for Helicobacter organisms by immunohistochemical stains. This test was developed and its performance characteristics determined by [facility]. It has not been cleared or approved by the [place]. [place]. Food and Drug Administration. The FDA has determined that such clearance or approval is not necessary. This test is used for clinical purposes. It should not be regarded as investigational or for research. Electronically Signed Out Geneva Starr MD Electronically Signed Out Siri Phillips MD [facility] Pathology [facility] [address], [place] [address] Technical component performed at [facility], [address], [place], [address]
== END 2016-08-28 23:59 | disposition home or self-care (01) ==
LOC: END 09:58
PROVIDERS: ATTEND Internal Medicine Gastroenterology
DX: K29.50 Unspecified chronic gastritis without bleeding (principal); R13.10 Dysphagia, unspecified; I13.0 Hypertensive heart and chronic kidney disease with heart failure and stage 1 through stage 4 chronic kidney disease, or unspecified chronic kidney disease; E11.22 Type 2 diabetes mellitus with diabetic chronic kidney disease; G47.33 Obstructive sleep apnea (adult) (pediatric); N18.3 Chronic kidney disease, stage 3 (moderate); F41.8 Other specified anxiety disorders; M19.90 Unspecified osteoarthritis, unspecified site; Z79.4 Long term (current) use of insulin; Z79.82 Long term (current) use of aspirin; Z87.891 Personal history of nicotine dependence
CPT/HCPCS: 43239; J2250; J7120

== ENCOUNTER 2016-09-10 10:33 | Day surgery (SDC) | payer MEDICARE, OTHER ==
[~2016-09-10] VITALS: Ht 182.9 cm; Wt 151.2 kg
[2016-09-10] VITALS (17 sets, daily range): BP systolic 149–214; BP diastolic 71–91; PULSE 61–76; RESP 16–21; O2SAT 92–98
[~2016-09-10 10:33] MED LIST changes: +0.9% Sodium Chloride 500 ML IV ONE
[2016-09-10] MEDS ORDERED: Remifentanil 1 mg/3 mL Inj ONE (10:34)
[2016-09-10] MEDS ORDERED: MetoCLOpramide 5 mg/mL 2 mL Inj ONE (10:34)
[2016-09-10] MEDS ORDERED: Ondansetron 2 mg/mL 2 mL Inj ONE (10:34)
[2016-09-10] MEDS ORDERED: Succinylcholine Chloride 20 mg/mL 5 mL Inj ONE (10:34)
[2016-09-10] MEDS ORDERED: fentaNYL-PF 50 mCg/mL 2 mL Inj ONE (10:34)
[2016-09-10] MEDS ORDERED: Propofol 10,000 mCg/mL 20 mL Inj ONE (10:34)
[2016-09-10] MEDS ORDERED: Lactated Ringer's 1,000 ML IV SCH (12:38)
[2016-09-10] MEDS ORDERED: Lactated Ringer's 500 ML IV PRN (12:38)
[2016-09-10] MEDS ORDERED: Ondansetron 2 mg/mL 2 mL Inj IVPUSH PRN (12:40)
[2016-09-10] MEDS ORDERED: MetoCLOpramide 5 mg/mL 2 mL Inj IVPUSH PRN (12:40)
[2016-09-10] MEDS ORDERED: fentaNYL-PF 50 mCg/mL 2 mL Inj IVPUSH PRN (12:40)
[2016-09-10] MEDS ORDERED: Dexamethasone 4 mg/mL Inj IVPUSH PRN (12:40)
[2016-09-10] MEDS ORDERED: Phenylephrine 10,000 mCg/mL Inj IVPUSH PRN (12:40)
[2016-09-10] MEDS ORDERED: HYDROmorphone 1 mg/mL Inj IVPUSH PRN (12:40)
[2016-09-10] MEDS ORDERED: EPHEDrine Sulfate 50 mg/mL Inj IVPUSH PRN (12:40)
[2016-09-10] MEDS ORDERED: Bupivacaine-MPF 0.5% W/EPI 30 mL Inj INFILTRATE ONE (12:56)
[2016-09-10] MEDS ORDERED: Lactated Ringer's 1,000 ML IV ONE (14:34)
[2016-09-10] MEDS ORDERED: oxyCODONE-Acetamin 5-325 mg Tablet PO PRN (14:50)
--- NOTE | 2016-09-10 15:03 | PCM.SURGOP ---
Surgical Operative Report Date of Service: Sep 10, 2016 Pre Operative Diagnosis Biliary colic Post Operative Diagnosis Chronic cholecystitis Procedure: Laparoscopic cholecystectomy Surgeon and Conduit Bender: Surgeon: Shannan Christian MD Assistants: Balaji Ortiz PA-C; Delphine Santiago MS3 An care team assistant was necessary for retraction and dissection. Indication for Procedure This is a 61-year-old man with a history of recurrent postprandial epigastric and right upper quadrant pain. A CT scan showed multiple gallstones. He was scheduled for laparoscopic cholecystectomy and then was canceled on the day of surgery by the machine crater for further cardiac workup. He underwent a stress test which did not show significant elevated cardiac risk despite his multiple known comorbidities. Therefore he returned for scheduled laparoscopic cholecystectomy. Findings: Severe inflammation of the gallbladder consistent with chronic cholecystitis. Procedure Details The patient was brought to the operating room and placed in supine position. General endotracheal anesthesia was smoothly induced. Antibiotics were infused. A warming blanket and SCDs were placed. A foot board was placed. The operative field was prepped and draped in sterile fashion. A pause was performed to confirm the correct patient, procedure, site, and side. A vertical 10 mm incision was made 5 cm above the umbilicus due to the patient' s body habitus. The abdomen was entered using Optiview technique. Three additional 5 mm ports were placed in the epigastrium and right upper quadrant. An additional 5 mm right mid abdominal port had to be placed later in the case to retract the adipose tissue to expose the cystic duct. The gallbladder was identified. It was extremely inflamed and distended. Therefore, a puncture devices used to decompress it. It could therefore be grasped and lifted cephalad. There were significant omental adhesions that had to be carefully removed from the gallbladder. Dissection then proceeded to identify the cystic duct, cystic artery, and to expose the bottom one third of the cystic plate. The cystic duct was very wide and short; due to its short length, a cholangiogram could not be performed and leave an adequate stump for further clipping. 2 clips were placed across it, and only one of the [address] across. It was then divided above the 2 clips, and a PDS Endoloop was placed on the stump to prevent future bile leak. The cystic artery was clipped once on the patient and gallbladder side and divided. Because of the significant inflammation around the gallbladder, 2 holes were made in the gallbladder during the dissection and some small black stones spilled out. These were all removed with suction and stone graspers by the end of the case. The gallbladder was then removed from its bed on the liver with electrocautery. Prior to completely removing the gallbladder, a final look was taken at the stump of the cystic artery and cystic duct, and there was no bleeding or bile leak. The gallbladder was then fully removed from the liver and placed in an EndoCatch bag and removed. The four 5 mm ports were removed under direct vision, the 10 mm mid abdominal port was removed, and an 0-PDS was placed laparoscopically to close fascia at that location. The patient had a known umbilical hernia which had been discussed preoperatively, with an approximately 2 cm defect. Due to the fact that it was asymptomatic and the patient's BMI is 45, the plan had been to not try to repair it during this case. 0.5% Marcaine with epinephrine was infused at all port sites for postoperative analgesia. The skin was closed with subcuticular 4-0 Monocryl. Sterile dressings were placed. The patient was awakened from general anesthesia and taken to the postoperative care unit in good condition. Complications There were no periprocedural complications identified. Surgical Specimen Removed: Yes Specimen sent to Pathology: Yes Surgical Specimen description: Gallbladder and gallstones Anesthetic Plan: GA Grafts, Implants: None Output, Estimated Blood Loss: 5 (ml) Blood Administration during yap: No Shannan Christian MD Sep 10, 2016 15:03
[2016-09-10] MEDS: hydrALAZINE 20 mg/mL Inj IVPUSH PRN ×3 (15:19→15:48)
--- NOTE | 2016-09-10 15:21 | PCM.HPANE ---
Patient Data Surgeon Admitting Provider: Attending Provider:Shannan Christian MD Primary Care Physician:Hallie Kelly MD Other Provider:Dana Reddingingham Anesthesia Reason for Visit Biliary Colic Ht/WT & BMI Height (Feet): 6 Height (Inches): 0.00 Weight (Kilograms): 151.200 Body Mass Index 45.00 Allergies Coded Allergies: gabapentin (Verified Allergy, Mild, N/V,swelling, 09/07/16) spironolactone (Unverified Allergy, Unknown, 09/10/16) Uncoded Allergies: SPIRONALACTONE (Allergy, Severe, BREAST PAIN, 09/07/16) Past Anesthesia History Anesthesia History: Denies:: Abnormal Airway, Anesthesia Reactions (prolonged anes at age 13- rebuilt foot "2 full days" ), Difficult Intubation, Fam Anesthesia Reaction, Fam Malignant Hypertherm, Malignant Hyperthermia Diabetes History Hx Diabetes?: Yes Type of Diabetes: Type II Glycemic Control: Insulin Dependent MRSA MRSA: No Medications Blood Thinner: Aspirin Hypertension Medication: Yes (TORSEMIDE,CLONIDINE,TERRAZOSIN) Home Meds Incl Beta Pacheco: Yes Date Beta Pacheco Taken: Sep 10, 2016 Time Beta Pacheco Taken: 0600 Reported Medications Torsemide 20 Mg Bmyhkq05 Mg PO QPM 30 Days Ref 0 07/20/16 Torsemide 20 Mg Sqlwrq69 Mg PO midday 30 Days Ref 0 07/20/16 Torsemide 20 Mg Rapudi36 Mg PO QAM 30 Days Ref 0 07/20/16 Terazosin 5 Mg Capsule5 Mg PO HS Ref 0 07/20/16 Insulin Regular, Human (Novolin-R U100 Insulin Vial)100 Unit/1 Ml Olfn329 Unit SQ TID #1 VIAL Ref 0 07/20/16 NPH, Human Insulin Isophane (Novolin-N U100 Insulin Vial)100 Unit/1 Ml Vial60 Unit SUBQ BID #1 VIAL Ref 0 07/20/16 Multivitamin (Multi Vitamin Daily)1 Each Tablet1 Each PO DAILY 30 Days Ref 0 07/20/16 Magnesium Chloride (Mag64)64 Mg Tablet.er64 Mg PO BID 07/20/16 Hydrocodone-Acetaminophen 10-325 mg 1 Each Tablet1-2 Tablet PO Q6H PRN For Pain Ref 0 07/20/16 Eplerenone 25 Mg Osabby88 Mg PO DAILY 07/20/16 Clonidine 0.1 Mg Tablet0.1 Mg PO BID Ref 0 07/20/16 Carvedilol 25 Mg Dlajmb09 Mg PO BID Ref 0 07/20/16 Atorvastatin (Lipitor)40 Mg Vltpmz41 Mg PO DAILY Ref 0 07/20/16 Aspirin 325 Mg Kjmkfm503 Mg PO TID #1 BOTTLE 07/20/16 Glimepiride (Amaryl)4 Mg Tablet4 Mg PO DAILY 07/20/16 History History of ENT Problems?: No HEENT History: Positive for:: Dysphagia Hearing Problem (no hearing aides- cannot afford S/P B/L EAR PROC. IN CHILDHOOD) Sinus Problem (S/P SINUS SURGERY) Denies:: Abnormal Airway Cataracts Difficult Intubation Denture Type: None Teeth Condition: Broken Teeth Tooth Decay Other HEENT Pertinent History: S/P TONSILLECTOMY Hx of Heart Problems?: Yes Cardiovascular History: Positive for:: Abdominal Aortic Aneurism (MILDLY ENLARGED ASCENDING AORTA) Chest Pain (c/o R subcostal discomfort, sharp pain lasted 1 hr) Congestive Heart Failure Edema (lower leg- on torsemide) Hypertension (HYPERLIPIDEMIA) Irregular Heartbeat (occ palpitations) Denies:: AICD Cardiac Surgery Heart Murmur Pacemaker Thrombophlebitis Valvular Heart Disease Hx of Respiratory Problem?: Yes Respiratory History: Positive for:: Use of C-PAP Machine (LAKISHA+ ?CPAP? SLEEP STUDY 10/2008) Denies:: Oxygen Administration Pneumonia Tuberculosis Hx Neurologic Problems?: No Neurological History: Denies:: CVA Dementia Headaches Multiple Sclerosis Parkinson's Disease Seizures Hx of GI Problems?: Yes Other GI Pertinent History: S/P APPY Hx of Problems?: Yes Genitourinary History: Positive for:: HX of Hemodialysis (CKD stage III ) Denies:: Kidney Stones Urinary Tract Infection Male Hx: Denies:: Prostate Problems Scrotal Mass Testicular Surgery Skin History: Positive for:: History Skin Disorders? 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 S/P B/L KNEE SCOPES,LT FOOT RPR) Denies:: Joint Replacement Systemic Lupus Hx of Psycho/Social Problems?: Yes Psycho Social History: Positive for:: Anxiety Hx Depression Hx Surgeries?: Yes (14 different- appendectomy, carpal tunnel, trigger thumb, sinus) Hx Any Other Health Problems?: Yes Other History: Denies:: Cancer Endocrine Disease Hospitalization Thyroid Disease History Blood Transfusions: Denies:: Blood Transfusions Hx Diabetes: Yes Hx Alcohol Use: NoHx Substance Use: No Smoking Status: Former Smoker Have You Smoked inLast 12 mo: No Stop/Bang S-Snoring: Do You Snore Loudly: No T-Tired: feel tired, fatigued: No O-Obsered: Observed not breath: No P-Blood Pressure: treated: Yes B- Body Mass Index > 35 kg/m2: Yes A- Age over 50: Yes N- Neck Large Circumference: Yes G- Gender Male: Yes LAKISHA Total Score: 5 Risk Assessment Category Category 1A: Patient has history of documented sleep apnea, and HAS NOT received any narcotic, sedative or anesthesia administration during this stay. Category 1B: Patient has history of documented sleep apnea, and HAS received any narcotic , sedative or anesthesia administration during this stay Category 2: Patient has SUSPECTED Obstructive Sleep Apnea, and HAS received any narcotic , sedative or anesthesia administration during this stay. Category 3: Patient has SUSPECTED Obstructive Sleep Apnea and HAS NOT received narcotic, sedative or anesthesia administration during this stay. Category 4: Outpatient in Procedural Areas with known sleep apnea or who screen positive for High Risk via the STOP/BANG questionnaire. Exam Exam Vital Signs Vital Signs Date Time Temp Pulse Resp B/P Pulse Ox O2 Delivery O2 Flow Rate FiO2 09/10/16 11:08 36.3 61 16 149/76 94 Room Air 09/10/16 11:08 CPAP/BIPAP 09/10/16 10:52 36.3 61 16 149/76 94 Room Air General Appearance: Alert, Oriented X3, Cooperative, No Acute Distress HEENT/AIRWAY: MP 3 Lungs: Clear to Auscultation Heart: Exam Unremarkable Meds/Labs/Diagnostics Admission Meds Current Medications Sodium Chloride (Normal Saline) 500 ml @ 10 mls/hr Q24H ONCE IV Last administered on 09/10/16t 10:35; Start 09/10/16 at 05:00; Stop 09/11/16 at 04:59 Plan Impression Patient chart reviewed, patient interviewed and anesthestic plan with risks, benefits, and alternatives discussed, and informed consent obtained. NPO per Anesth. Guidelines: Yes ASA Physical Status: ASA3 Severe Disease Anesthetic Plan: GA Bene/Risks/Altern/Consents: Yes HP Complete Prior to Induction: Yes Robbin Mueller MD Sep 10, 2016 11:27
--- NOTE | 2016-09-10 15:21 | PCM.ANEP1 ---
Post Anesthesia PACU Phase 1 Assessment Vital Signs Vital Signs Date Time Temp Pulse Resp B/P Pulse Ox O2 Delivery O2 Flow Rate FiO2 09/10/16 15:09 68 17 211/88 93 Nasal Cannula 3 09/10/16 15:05 68 18 93 Nasal Cannula 3 09/10/16 14:59 71 17 199/86 94 Nasal Cannula 3 09/10/16 14:55 76 18 193/87 95 Nasal Cannula 3 09/10/16 14:52 76 18 188/90 98 Simple Mask 8 09/10/16 14:50 36.3 73 16 190/91 95 Simple Mask 8 09/10/16 11:08 36.3 61 16 149/76 94 Room Air 09/10/16 11:08 CPAP/BIPAP 09/10/16 10:52 36.3 61 16 149/76 94 Room Air Anesthetic Administered: GA Level of Alertness: Sleepy, easy to arouse MIRANDA's with Equal Strength: Yes Pain: No Nausea or Vomiting: No CV Function & Hydration Stable: Yes Airway Device: Oxygen Delivery: Simple Mask Lungs: Clear to Auscultation Dermatome Level: Full Sensation PACU Phase 2 Assessment Complications: No Patient Instructions Provided: N/A Robbin Mueller MD Sep 10, 2016 15:21
[2016-09-10] MEDS ORDERED: HYDROcodone-APAP 5-325 mg Tablet PO ONE (16:47)
[2016-09-10] MEDS ORDERED: cloNIDine 0.1 mg Tablet PO ONE (17:45)
--- NOTE | 2016-09-11 15:13 | PATH ---
SURGICAL PATHOLOGY Attending Physician:Shannan Christian MD CASE STATUS: Signed Out PATIENT NAME: AURORA RUIZ PID: [id number] : 1955 DATE COLLECTED:09/10/2016 00:00 SPECIMEN: Gallbladder CLINICAL HISTORY: BILIARY COLIC 1). GALLBLADDER FINAL DIAGNOSIS: 1.GALLBLADDER: CHOLELITHIASIS WITH ASSOCIATED CHRONIC CHOLECYSTITIS. ICD10 K80.66 GROSS DESCRIPTION: The specimen is received in one formalin filled container labeled with the patient's name, labeled "gallbladder" and consists of an opened 8.5 x 3.0 x 1.5 CM gallbladder. The serosa is smooth. The cystic duct is possibly identified. The wall is 0.2-0.5 CM in thickness. The mucosa is a dark cuba in color. The lumen contains approximately 10 fragments of dark brown-black irregular-shaped calculi which range in size from 0.1-0.7 CM in greatest dimension. 5 hardware supplies sales representative sections are submitted one cassette. 09/11/2016 DAC MICRO DESCRIPTION: See diagnosis. ICD-9 CODES: CPT CODES: 1: 40275 Electronically Signed Out Tommy Moran MD [facility] Pathology [facility] [address], [place] [address] Technical component performed at [facility], [facility] [address], [place], [address]
== END 2016-09-10 23:59 | disposition home or self-care (01) ==
LOC: SAS 10:33
PROVIDERS: ATTEND Surgery
DX: K80.10 Calculus of gallbladder with chronic cholecystitis without obstruction (principal); E11.21 Type 2 diabetes mellitus with diabetic nephropathy; Z79.4 Long term (current) use of insulin; I10 Essential (primary) hypertension; G47.30 Sleep apnea, unspecified; I87.2 Venous insufficiency (chronic) (peripheral); G62.9 Polyneuropathy, unspecified
CPT/HCPCS: 47562; J0330; J0360; J0690; J2175; J2270; J2405; J2765; J3010; J7040; J7120

== ENCOUNTER 2016-09-17 04:55 | Observation (INO) | payer MEDICARE, OTHER ==
[2016-09-17] VITALS (11 sets, daily range): BP systolic 145–215; BP diastolic 57–94; PULSE 58–73; RESP 16–22; O2SAT 92–98
[~2016-09-17] VITALS: Ht 182.9 cm; Wt 149.4 kg
[~2016-09-17 04:55] MED LIST changes: -0.9% Sodium Chloride 500 ML IV ONE
--- NOTE | 2016-09-17 05:03 | ED.REPORT ---
HPI-Chest Pain 40 and Over Date of Service Sep 17, 2016 ED Provider: Dr. Anup Montalvo The patient is a 61 year old male w/ a hx of DM, CHF, CKD stage III, peripheral neuropathy, diaphragmatic hernia, LAKISHA, and benign prostatic hypertrophy who presents to the ED due to intermittent chest pain onset 2300 last night. The patient had a "big attack of chest pain" at 2300 last night, and another episode for a half hour at 0300. The pain feels like he's being punched in the mid-chest and radiates to the back. He has never experienced pain like this previously. The patient denies fever, nausea, vomiting, diaphoresis, hematochezia, or any hx of heart disease. Dr. 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 He had an endoscopy performed recently, he has multiple ulcerations in his esophagus. Nursing Notes Stated Complaint: CHEST PAIN Chief Complaint: Chest Pain Nursing Notes Reviewed: Yes Allergies: Coded Allergies: gabapentin (Verified Allergy, Mild, N/V,swelling, 09/07/16) spironolactone (Unverified Allergy, Unknown, 09/10/16) Uncoded Allergies: SPIRONALACTONE (Allergy, Severe, BREAST PAIN, 09/07/16) Scheduled Aspirin (Aspirin) 325 Mg Tablet 325 MG PO TID Atorvastatin (Lipitor) 40 Mg Tablet 40 MG PO DAILY Carvedilol (Carvedilol) 25 Mg Tablet 25 MG PO BID Clonidine (Clonidine) 0.1 Mg Tablet 0.1 MG PO BID Eplerenone (Eplerenone) 25 Mg Tablet 25 MG PO DAILY Glimepiride (Amaryl) 4 Mg Tablet 4 MG PO DAILY Insulin Regular, Human (Novolin-R U100 Insulin Vial) 100 Unit/1 Ml Vial 100 UNIT SQ TID Magnesium Chloride (Mag64) 64 Mg Tablet.er 64 MG PO BID Multivitamin (Multi Vitamin Daily) 1 Each Tablet 1 EACH PO DAILY NPH, Human Insulin Isophane (Novolin-N U100 Insulin Vial) 100 Unit/1 Ml Vial 60 UNIT SUBQ BID Terazosin (Terazosin) 5 Mg Capsule 5 MG PO HS Torsemide (Torsemide) 20 Mg Tablet 40 MG PO QAM Torsemide (Torsemide) 20 Mg Tablet 40 MG PO midday Torsemide (Torsemide) 20 Mg Tablet 20 MG PO QPM Scheduled PRN Hydrocodone-Acetaminophen 10-325 mg (Hydrocodone-Acetaminophen 10-325 mg) 1 Each Tablet 1-2 TABLET PO Q6H PRN PRN For Pain General Time Seen by MD: 05:02 Chief Complaint Chest pain Hx Obtained From: Patient Arrived By: Walk-in Sudden in Onset?: Yes Onset Occurred: 5 - 8 hours ago Symptom Duration: Since onset Location: : Substernal Quality: Painful Radiation: : Back Severity: Current: Moderate Recent Healthcare: Recent doctor visit, Recent hospitalization, Previous surgery Past Medical History Past Medical History Notes: PCP: Dr. Hallie Kelly Past Medical History DM CHF CKD stage III Peripheral neuropathy Chronic pain Statis dematitis Diaphramitic hernia LAKISHA Benign prostatic hypertrophy Past Surgical History cholecystectomy Smoking History Former Smoker Social History Other Social History: Good social support, Local resident Ambulatory Status Independent Review of Systems Constitutional: Denies: Fever Cardiovascular: Reports: Chest pain GI: Denies: Hematochezia, Nausea, Vomiting Musculoskeletal: Reports: Back pain Skin: Denies Diaphoresis Complete sys rev & neg: except as marked. Physical Exam Initial Vital Signs Vital Signs (First) Date Time Temp Pulse Resp B/P Pulse Ox O2 Delivery O2 Flow Rate FiO2 09/17/16 04:57 36.8 73 20 197/72 98 Room Air Initial VS: Reviewed General/Constitutional: Awake, Alert, Cooperative Appearance / Presentation: Positive: Obese, morbidly Respiratory / Chest: Atraumatic, Breath sounds NL, Breath sounds = bilat, No respiratory distress Cardiovascular: Heart rate NL, Regular rhythm, Heart sounds NL Lower Ext Edema: Positive: Bilateral 3+ (with chronic brawny induration ) Tenderness/Guarding/Rebound: Positive: Tender epigastric diffusely tender Lower Extremity / Pelvis / MS: No deformity, Neurologic intact Neurologic: Oriented X3, Speech NL Head / Eyes: Atraumatic, Normocephalic, PERRL, EOMI Upper Extremity / MS: Atraumatic, Inspection NL, No deformity Wrist / Hand: Atraumatic, Inspection NL, No deformity Ankle / Foot: Atraumatic, Inspection NL, No deformity Interpretation & Diagnostics Lab Results Interpretation Result Diagram: 09/17/16 0507 09/17/16 0507 Test 09/17/16 05:07 09/17/16 06:57 White Blood Count 3.5th/mm3 (3.8-10.1) Red Blood Count 4.64mil/mm3 (4.40-5.80) Hemoglobin 13.0g/dL (13.8-17.2) Hematocrit 40.1% (41.0-50.0) Mean Corpuscular Volume 86.4fL (81-100) Mean Corpuscular Hemoglobin 28.0pg (27.0-35.0) Mean Corpuscular Hemoglobin Concent 32.4% (32.0-37.0) Red Cell Distribution Width 14.6% (12.3-15.4) Platelet Count 172bil/L (150-400) Neutrophils (%) (Auto) 55.7% (40-74) Lymphocytes (%) (Auto) 30.1% (14-46) Monocytes (%) (Auto) 7.8% (4-12) Eosinophils (%) (Auto) 4.9% (0-5) Basophils (%) (Auto) 0.6% (0-3) Sodium Level 139mEq/L (134-144) Potassium Level 3.9mEq/L (3.5-5.2) Chloride Level 99mEq/L (97-108) Carbon Dioxide Level 26mmol/L (18-29) Blood Urea Nitrogen 31mg/dL (8-27) Creatinine 1.40mg/dL (0.76-1.27) Estimat Glomerular Filtration Rate 55mL/min (>59) Glucose Level 210mg/dL (60-99) Calcium Level 9.3mg/dL (8.5-10.1) Magnesium Level 2.2mg/dL (1.6-2.6) Total Bilirubin 1.0mg/dL (0.0-1.2) Aspartate Amino Transf (AST/SGOT) 50U/L (0-50) Alanine Aminotransferase (ALT/SGPT) 42U/L (0-44) Alkaline Phosphatase 85U/L (25-160) Troponin T 0.022ug/L (0.0-0.011) Total Protein 7.4g/dL (6.4-8.4) Albumin 4.2g/dL (3.4-5.0) Lipase 42U/L (13-60) Hold Argueta Top Tube Received (Received) Hold Urine Received (Received) ECG Interpretation Time: 04:58 Interpreted by: ED physician Normal ECG Interpretation: Normal ECG w/ rate of... (rate 73) X-Ray Chest Interpretation Chest Xray Interpretation: IMPRESSION: negative View: Portable Interpretation / Wet Read by: Wet read ED physician Re-Eval/Medical Decision Med Decision/Clinical Course 61-year-old presents with chest pain radiating to his back. He has documented ulcerations in his esophagus which seems the likely source of this pain. However, he has an elevated troponin at 0.022. This is perhaps due to his low-grade azotemia, but possibility of cardiac origin to be excluded. He is admitted observation status for completion of rule out protocol and potentially performance testing after negative rule out. Counseled Regarding: Diagnosis, Lab results Discharge & Departure Primary Impression: Chest pain Additional Impressions: Esophagitis Elevated troponin Chronic kidney disease Disposition: ADMITTED TO HOSPITAL Discharge Condition All VS Reviewed: Yes Condition: Stable Referrals: Hallie Kelly MD (PCP) Juan Attestation Portion of this note were transcribed by Nidhi Fournier. I, Dr. Montalvo, personally performed the history, physical exam, and medical decision-making: I reviewed and confirmed the accuracy for the information in the transcribed note. Signed by: juan Seals, 09/17/16 0600 copies to: Hallie Kelly MD, Christopher W MD Sep 17, 2016 05:03 Nidhi Fournier Sep 17, 2016 05:14
[2016-09-17] MEDS ORDERED: Pantoprazole 4 mg/mL 10 mL Inj IVPUSH ONE (05:15)
[2016-09-17 05:28] LABS: BASOPHILS % (AUTO) 0.6 % (0-3); EOSINOPHILS % (AUTO) 4.9 % (0-5); MONOCYTES % (AUTO) 7.8 % (4-12); Mean Corpuscular Volume 86.4 fL (81-100); NEUTROPHILS % (AUTO) 55.7 % (40-74); Platelet Count 172 bil/L (150-400)
[2016-09-17 06:06] LABS: Magnesium 2.2 mg/dL (1.6-2.6); TROPONIN T 0.022 ug/L (0.0-0.011)
--- NOTE | 2016-09-17 08:17 | DRSVH ---
PROCEDURE: X-RAY CHEST ONE VIEW, PORTABLE ([id number]) INDICATIONS: Chest pain, recent clara TECHNIQUE: One view of the chest was acquired. COMPARISON: [facility], CR, XR CHEST 1VW (PORTABLE), 07/13/2016, 20:39. [facility], CR, CHEST 2VW, 09/10/2014, 18:19. FINDINGS: Surgical changes and devices: None. Lungs and pleura: Aeration of the lungs are similar to the prior study. There is mild elevation of t he right diaphragm. No focal consolidation, effusion, or pneumothorax is evident. There may be mini mal right basilar atelectasis. Mediastinum: Mediastinal contours appear normal. Heart size is normal. Bones and chest wall: No suspicious bony lesions. Overlying soft tissues appear unremarkable. IMPRESSION: Minimal right basilar atelectasis. Otherwise, no acute cardiopulmonary process is suspec ricci. Dictated by: Sidney Judd M.D. on 09/17/2016 at 8:14 Approved by: Sidney Judd M.D. on 09/17/2016 at 8:15
[2016-09-17] MEDS ORDERED: Alum-Mag Hydrox-Simeth 30 mL Suspension PO PRN (08:20)
[2016-09-17] MEDS ORDERED: Polyethylene Glycol (PEG) 17 Gm Powder PO PRN (08:20)
[2016-09-17] MEDS ORDERED: Ondansetron 2 mg/mL 2 mL Inj IVPUSH PRN (08:20)
[2016-09-17 08:50] LABS: APPEARANCE,URINE HAZY (CLEAR,HAZY); COLOR,URINE STRAW (YELLOW)
[2016-09-17 08:51] LABS: OCCULT BLOOD,URINE NEGATIVE (NEGATIVE); UROBILINOGEN,URINE NORMAL (NORMAL)
--- NOTE | 2016-09-17 10:30 | NUR ---
Admission note Report received from ED RN. Patient arrived to room 2021 via stretcher from ED. Pt oriented to room, use of call light. Policies and procedures explained. Pt verbalized understanding. Patient A&O x3. Awaiting orders. Ongoing care.
[2016-09-17] MEDS ORDERED: INSU100V27 SQ (10:33)
[2016-09-17] MEDS: Sodium Chloride LOK Flush 10 mL Syringe IVFLUSH SCH ×2 (12:26→17:52)
[2016-09-17] MEDS ORDERED: POLY17PO6 PO (17:03)
[2016-09-17] MEDS ORDERED: CHOL200025 PO (17:03)
[2016-09-17] MEDS: HYDROcodone-APAP 10-325 mg PO PRN (17:50)
[2016-09-17] MEDS: Insulin LISPRO Medium-Dose Scale SUBQ SCH ×2 (19:22→20:59)
[2016-09-17] MEDS: cloNIDine 0.1 mg Tablet PO SCH (20:47)
[2016-09-17] MEDS: Insulin Human NPH 100 Unit/mL 3 mL Inj SUBQ SCH (21:00)
[2016-09-17] MEDS ORDERED: TERAZOSIN 5 MG PO SCH (21:10)
--- NOTE | 2016-09-17 21:18 | PCM.HPMED ---
Subjective Date of Service Sep 17, 2016 Primary Provider: Admitting Physician: Anup Mixon MD Primary Care Physician: Hallie Kelly MD Attending Physician: Anup Mixon MD Chief Complaint: Chest pain History of Present Illness: The patient is a 61-year-old white male with history of diabetes mellitus, CHF, chronic kidney disease stage III, peripheral neuropathy, diaphragmatic hernia, obstructive sleep apnea, benign prostatic hypertrophy who was just playing with a cell phone last night he developed severe pain in his chest just right of the sternum which felt like "Hulk Carmen had punched him in the chest area and then the pain changed to a knifelike pain stabbing right through to his back. The patient was awake for 45-60 minutes later and then finally went to sleep on the pain alleviated some. He went to sleep on his BiPAP and woke up at 3:30 in the morning. He was wide awake a got up to go to the bathroom and urinate developed pain in his chest again. This time he woke his daughter Katrin stevens brought him to [facility] emergency room where he was evaluated by Dr. Anup Montalvo. Patient had a troponin which was slightly elevated at 0.022 with the upper limit of normal being 0.011 EKG was performed which showed normal sinus rhythm with a rate of 73 chest x-ray was performed which was "negative" the patient was given some IV Protonix as he had had some either esophageal or gastric ulcerations in the past and Dr. Montalvo felt this might be the source of his pain. However due to the slightly elevated troponin level of 0.022 Dr. Montalvo felt that possibility of cardiac origin needed to be excluded. The patient was therefore admitted under observation to the hospitalist service for further evaluation and treatment. Review of Systems: General: Patient states that he is having a hard time losing weight and he leads a fairly sedentary life other than walking the dog. He also states he has a hard time keeping his legs elevated. HEENT: Patient has no headache, patient has no diplopia, patient has no changes in vision. Patient has no problems with his nose or throat. Patient has had hearing loss both ears due to otosclerosis. Surgery corrected this temporarily however he is almost deaf in his right ear and has decreased hearing in his left ear. Patient has no known dental problems other than some broken teeth that are broken off at the gumline and he can afford to have them treated.. Patient has no pharyngitis or history of thrush. Neck: Patient has no stiffness in the neck. Patient has no lymphadenopathy. Patient has no other problems with their neck. Pulmonary: Patient has no shortness of breath, no cough, no expectoration of sputum. Patient has no pleurisy. Patient has no chest pain. Patient has no history of asthma or COPD. patient has obstructive sleep apnea and requires BiPAP at night. Cardiovascular: Patient has chest pain as described in the history of present illness. Patient has no history of heart murmur. Patient has no palpitations. Patient has no history of myocardial infarction. Patient has no history of coronary artery disease. Gastrointestinal: Patient has no history of hepatitis A, B or C. Patient has history of peptic ulcer disease. Patient has a history of gastroesophageal reflux disease. She also has a history of a diaphragmatic hernia. Patient has no history of nausea, vomiting, or diarrhea. Patient has no history of hematemesis, hematochezia, or melena. Patient has no history of colitis. Renal: Patient has a history of chronic kidney disease stage III secondary to diabetes mellitus. No history of kidney stones. Genitourinary: Patient has no history of dysuria, frequency, or incontinence. Patient has a history of benign prostatic hypertrophy. He underwent a cystoscopy a few years ago that was unremarkable. Musculoskeletal: Patient has no history of muscular skeletal problems. Neurologic: Patient has no history of stroke, no history of seizure, no history of TIA. Patient has otosclerosis causing hearing loss in both ears now right greater than left. Patient also has peripheral neuropathy. Psychiatric: Patient has no history of psychiatric problems. The remainder of the entire review of systems was reviewed with patient and is as mentioned above otherwise negative. Allergies Coded Allergies: doxazosin (Verified Allergy, Severe, "swelling", 09/17/16) codeine (Verified Allergy, Mild, Nausea,Vomiting, 09/17/16) gabapentin (Verified Allergy, Mild, N/V,swelling, 09/17/16) spironolactone (Unverified Allergy, Unknown, 09/10/16) Uncoded Allergies: SPIRONALACTONE (Allergy, Severe, BREAST PAIN, 09/07/16) Home Medications Scheduled Aspirin (Aspirin) 325 Mg Tablet 325 MG PO TID Atorvastatin (Lipitor) 40 Mg Tablet 40 MG PO DAILY Carvedilol (Carvedilol) 25 Mg Tablet 25 MG PO BID Clonidine (Clonidine) 0.1 Mg Tablet 0.1 MG PO BID Eplerenone (Eplerenone) 25 Mg Tablet 25 MG PO DAILY Glimepiride (Amaryl) 4 Mg Tablet 4 MG PO DAILY Insulin Regular, Human (Novolin-R U100 Insulin Vial) 100 Unit/1 Ml Vial 100 UNIT SQ TID Magnesium Chloride (Mag64) 64 Mg Tablet.er 64 MG PO BID Multivitamin (Multi Vitamin Daily) 1 Each Tablet 1 EACH PO DAILY NPH, Human Insulin Isophane (Novolin-N U100 Insulin Vial) 100 Unit/1 Ml Vial 60 UNIT SUBQ BID Terazosin (Terazosin) 5 Mg Capsule 5 MG PO HS Torsemide (Torsemide) 20 Mg Tablet 40 MG PO QAM Torsemide (Torsemide) 20 Mg Tablet 40 MG PO midday Torsemide (Torsemide) 20 Mg Tablet 20 MG PO QPM Scheduled PRN Hydrocodone-Acetaminophen 10-325 mg (Hydrocodone-Acetaminophen 10-325 mg) 1 Each Tablet 1-2 TABLET PO Q6H PRN PRN For Pain PMH DM diagnosed in 1997 or CHF diagnosed a "couple of years ago" CKD stage III Peripheral neuropathy Chronic pain Statis dematitis Diaphramitic hernia LAKISHA Benign prostatic hypertrophy Cellulitis of the right lower extremity in July 2014 and left leg cellulitis previously Severe degenerative disc disease of the spine Surgical History Tonsils and adenoids were removed at the age of 2 Appendectomy at the age of 8 per patient spent 4 days in the hospital. The patient had a removal of an accessory navicular bone and the left foot at the age of [address] Ch Patient had surgery for otosclerosis in both ears with major success in being able to hear again by Dr. Bae at the age of 12 1 year was done at the age of 13 in the other ear was done. Patient had meniscus repair of both knees. Patient had 2 carpal tunnel syndrome surgeries one in each wrist Patient underwent surgery of both thumbs. Patient underwent sinus surgery in [place] 30 years ago. He had repair of a septal deviation and lower sinus surgery. Family History Patient's father of palpitations of end-stage Alzheimer's disease at 83 Patient's mother at the age of 70 from comp cases of diabetes Patient had 2 sisters. Patient is unsure of their medical history. Social History Hx Alcohol Use: Yes (The patient drank some as a young man, however patient quickly realized that taking care of his family was more important.) Hx Substance Use: No Hx Tobacco Use: No Smoking Status: Never Smoker Living Arrangement: Alone Exam Vital Signs Vital Sign - Last Date Time Temp Pulse Resp B/P Pulse Ox O2 Delivery O2 Flow Rate FiO2 09/17/16 20:32 36.8 65 18 199/94 95 Room Air Exam General: Patient is in no apparent distress. He is currently not having any chest pain. HEENT: Head is atraumatic and normocephalic, with normal male pattern baldness. Eyes: Pupils are equally round and reactive to light and accommodation. Extraocular muscles are intact. Sclera are white, anicteric. Subconjunctival mucosa is pink. Ears and nose are unremarkable. Oropharynx: There is no mucosal lesions, there is no thrush, there is no pharyngitis. A few teeth broken off at the gumline. There does not appear to be any dental abscesses. Neck: Is supple, there are no nodes, or masses or tenderness. Chest: Is clear to auscultation and percussion. There are no rales, rhonchi, wheezes or rubs. Heart: Rate, rhythm is regular. There is no murmur, rub or gallop. Abdomen: Good bowel sounds are present. Abdomen is morbidly obese, soft, nontender, no organomegaly or masses were appreciated. Extremities: Are fairly symmetrical and well perfused. There is bilateral 2-3+ edema, there is no cellulitis, no rash. However, there is discoloration of both lower extremities from previous edema and cellulitis. Neurologic: There are no focal neurological deficits. Cranial nerves II through XII are intact sent for deafness in the right ear and decreased hearing in the left ear. There are no sensory or motor deficits. Psychiatric: Patients mood is calm and he shows no sign of agitation. Genital: Deferred Rectal: Deferred Lab and Diagnostics Result Diagram: 09/17/1650609/17/16 0507 X-Rays, CTs and MRIs PROCEDURE: X-RAY CHEST ONE VIEW, PORTABLE ([id number]) INDICATIONS: Chest pain, recent clara TECHNIQUE: One view of the chest was acquired. COMPARISON: [facility], CR, XR CHEST 1VW (PORTABLE), 07/13/2016, 20: 39. [facility], CR, CHEST 2VW, 09/10/2014, 18:19. FINDINGS: Surgical changes and devices: None. Lungs and pleura: Aeration of the lungs are similar to the prior study. There is mild elevation of the right diaphragm. No focal consolidation, effusion, or pneumothorax is evident. There may be minimal right basilar atelectasis. Mediastinum: Mediastinal contours appear normal. Heart size is normal. Bones and chest wall: No suspicious bony lesions. Overlying soft tissues appear unremarkable. IMPRESSION: Minimal right basilar atelectasis. Otherwise, no acute cardiopulmonary process is suspected. Dictated by: Sidney Judd M.D. on 09/17/2016 at 8:14 Approved by: Sidney Judd M.D. on 09/17/2016 at 8:15 Cardiac Echo Impressions Echocardiogram Report Name: AURORA RUIZ CStudy Date : 07/14/2016 Height: 72 in Hospital Exam Location: [facility] Weight: 328 lb Gender: Male BSA: 2.6 m2 : 1955 Age: 61 yrs BP: 123/67 m mHg Reason For Study: Chest pain Ordering Physician: HOSPITALIST [facility] Performed By: Xiao Pimentel Referring Physician: Kamille Angel Interpretation Summary 1) Moderate concentric left ventricular hypertrophy with normal size, normal wall motion, and normal systolic function (EF 65-70%). 2) Normal right ventricualr size and function. 3) Grade 2 diastolic dysfunction (pseudonormalization) pattern, consistent with elevated filling pressures. 4) No significant valvular abnormalities except for age related calcification of the aortic and mitral valves. 5) Mildly enlarged ascending aorta (diameter 4.1cm) and mildly enlarged aortic arch (diameter 3.3cm). 6) Systolic pulmonary pressure estimated at 37mmHg, which is borderline elevated. 7) Compared to the Echo done 11/11/2014, no significant change. Assessment & Plan The patient is a 61-year-old white male with history of diabetes mellitus, CHF, chronic kidney disease stage III, peripheral neuropathy, diaphragmatic hernia, obstructive sleep apnea, benign prostatic hypertrophy who was just playing with a cell phone last night he developed severe pain in his chest just right of the sternum which felt like "Hulk Carmen had punched him in the chest area and then the pain changed to a knifelike pain stabbing right through to his back. The patient was awake for 45-60 minutes later and then finally went to sleep on the pain alleviated some. He went to sleep on his BiPAP and woke up at 3:30 in the morning. He was wide awake a got up to go to the bathroom and urinate developed pain in his chest again. This time he woke his daughter Katrin stevens brought him to [facility] emergency room where he was evaluated by Dr. Anup Montalvo. Patient had a troponin which was slightly elevated at 0.022 with the upper limit of normal being 0.011 EKG was performed which showed normal sinus rhythm with a rate of 73 chest x-ray was performed which was "negative" the patient was given some IV Protonix as he had had some either esophageal or gastric ulcerations in the past and Dr. Montalvo felt this might be the source of his pain. However due to the slightly elevated troponin level of 0.022 Dr. Montalvo felt that possibility of cardiac origin needed to be excluded. The patient was therefore admitted under observation to the hospitalist service for further evaluation and treatment. # Chest pain with slightly elevated troponin level, present at the time of admission. Active and ongoing - Suspect pain is noncardiac in origin with elevated troponin secondary to chronic kidney disease stage III - Suspect pain may be gastrointestinal in origin - Therefore, check abdominal ultrasound, start IV Protonix and consider further GI workup as an outpatient. - Meanwhile, check serial troponins to ensure that they are not on the rise. If there are I's acute coronary syndrome is more likely and will need to consult the cardiology service. - We will continue telemetry monitoring. - We will monitor closely. # Diabetes mellitus, present time of admission. Active ongoing. - Continue NPH insulin as at home - We will order Accu-Cheks with sliding scale insulin coverage - Check hemoglobin A1c # Chronic kidney disease stage III, present at the time admission. Active - We will try to avoid any nephrotoxic agents. - Continue close observation # Obstructive sleep apnea with probable obesity hypoventilation syndrome, present time of admission. Active and ongoing. - Continue BiPAP as at home - We will follow # Chronic problems - Peripheral neuropathy-continue home medications - Chronic pain- continue home medications - Stasis dermatitis- I have recommended the patient keep his legs elevated above his heart if at all possible. - Diaphragmatic hernia - Benign prostatic hypertrophy Disposition: Patient will be brought in to the hospital under observation for further evaluation and treatment. Pain Evaluation: Adequate Pain Control GI Prophylaxis: Proton Pump Inhibitor VTE Prophylaxis: Sub-Q Enoxaparin Resuscitation Status: CPR: Attempt Resuscitation Anup Mixon MD Sep 17, 2016 21:18
[2016-09-17] MEDS: Magnesium Chloride SR 64 mg ER24 Tablet PO SCH (21:49)
[2016-09-17] MEDS: Pantoprazole 4 mg/mL 10 mL Inj IVPUSH SCH (23:49)
[2016-09-18] MEDS: Sodium Chloride LOK Flush 10 mL Syringe IVFLUSH SCH ×2 (00:30→08:32)
[2016-09-18 00:39] VITALS: BP 182/93; PULSE 67; RESP 20; O2SAT 97
--- NOTE | 2016-09-18 03:28 | NUR ---
PAIN Pt complained of generalized pain, back, arms and legs 11/15 stating, "I've been in pain for so long without any pain medication that my normal pain pills aren't going to touch my pain." MD notified. New order: Morphine 2mg IV push, administered. Pt reports no change in pain at this time. Will continue to monitor. Call light within reach. Frequent rounding in place. Cooperative with care.
--- NOTE | 2016-09-18 03:30 | NUR ---
Pain Pt continued to complain of pain 10/10 in arms, back and legs. Administered 2 Hydrocodone, effective. Pt is resting with eyes closed. No s/sx of pain or discomfort at this time. Call light within reach, using appropriately. Frequent rounding in place.
[2016-09-18 05:16] VITALS: BP 207/94; PULSE 64; RESP 22; O2SAT 95
--- NOTE | 2016-09-18 05:30 | NUR ---
BP Pt BP: 204/91. notified. New order: One time dose Cardizem, administered. Call light within reach. Will continue to monitor.
--- NOTE | 2016-09-18 06:05 | NUR ---
PAIN Pt complained of neck, back and bilat LE leg pain 03/17. Administered Morphine 2mg IV push. Will continue to monitor. Call light within reach.
[2016-09-18 07:01] LABS: BASOPHILS % (AUTO) 0.5 % (0-3); EOSINOPHILS % (AUTO) 5.4 % (0-5); MONOCYTES % (AUTO) 8.1 % (4-12); Mean Corpuscular Hemoglobin 27.7 pg (27.0-35.0); Mean Corpuscular Volume 85.8 fL (81-100); NEUTROPHILS % (AUTO) 52.7 % (40-74); Platelet Count 183 bil/L (150-400)
[2016-09-18 07:21] LABS: Magnesium 2.3 mg/dL (1.6-2.6)
[2016-09-18 08:22] VITALS: BP 199/88; PULSE 58; RESP 22; O2SAT 98
[2016-09-18] MEDS: Insulin LISPRO Medium-Dose Scale SUBQ SCH (08:29)
[2016-09-18] MEDS: Insulin Human NPH 100 Unit/mL 3 mL Inj SUBQ SCH (08:30)
[2016-09-18] MEDS: Magnesium Chloride SR 64 mg ER24 Tablet PO SCH (08:32)
[2016-09-18] MEDS: cloNIDine 0.1 mg Tablet PO SCH (08:40)
[2016-09-18] MEDS: Pantoprazole 4 mg/mL 10 mL Inj IVPUSH SCH (08:40)
[2016-09-18] MEDS: HYDROcodone-APAP 10-325 mg PO PRN (08:41)
--- NOTE | 2016-09-18 09:15 | NUR ---
Social Work-initial assessment/ readiness for discharge: Data:See initial assessment. Pt is a 61 y/o male who was admitted on 09/17/16 for chest pain per H&P. Pt's insurance is [employer] and PCP is Hallie Kelly MD. EMR reviewed. SW met with pt at bedside, SW role explained. Pt is alert and oriented x3. Pt resides at home with his daughter Katrin in a ground floor apartment with 2 stairs to enter. Pt uses a cane at baseline and occasionally drives. Pt has no HH or SNF history. Pt has no [facility] care insurance or VA benefits. SW discussed DPOA/ advanced directive, pt has not completed this, paperwork has been provided. Pt confirms that he has enough help at home. Pt states his daughter will be providing transport home at discharge. SW provided phone number and plan on white board in room. No anticipated discharge needs. SW will continue to follow if needs arise. Assessment:Pt who is independent at baseline. Plan:Pt to discharge home when medically stable via POV. No anticipated discharge needs. SW will continue to follow if needs arise. KAVIN Ray Addendum: 09/18/16 at 0920 by XUAN NORMAN Amended: Links added.
[2016-09-18 10:44] VITALS: PULSE 70
--- NOTE | 2016-09-18 11:24 | NUR ---
Case Management: DENZEL given and explained to pt. Palmira YANEZRN
--- NOTE | 2016-09-18 11:56 | DRSVH ---
PROCEDURE: US ABDOMEN, LIMITED ([id number]) INDICATIONS: abdominal pain TECHNIQUE: Real-time focused scanning was performed of the abdomen, with image documentation. COMPARISON: [facility], CT, CT ABD W CON, 07/13/2016, 21:39. FINDINGS: Examination is extremely limited which demonstrates hepatic steatosis but much liver is not imaged. The bile duct is not visualized. Gallbladder is been surgically resected. IMPRESSION: Limited exam demonstrating increased hepatic echogenicity noted likely related to fatty i nfiltration of the liver but other sources of hepatocellular disease cannot be excluded. Recommend c linical correlation. Dictated by: Sergio Penn [facility] Interpreted: Devin Chirinos MD on 09/18/2016 at 8:34 Approved by: Devin Chirinos M.D. on 09/18/2016 at 11:54
[2016-09-18] MEDS ORDERED: Insulin LISPRO High-Dose Scale SUBQ SCH (12:00)
--- NOTE | 2016-09-18 13:28 | PCM.DIMED ---
Discharge Instructions Date of Service Sep 18, 2016 Dates of Hospitalization Sep 17, 2016 at 07:40 Discharge Diagnosis Discharge Diagnosis Atypical chest pain Diet Discharge Diet: Heart Healthy, Diabetic Activity Discharge Activity: No restrictions (The patient may return to usual activities gradually as tolerated.) Call your provider Call your provider for: Fever or Chills, Shortness of breath, Bleeding, Chest pain, Vomitting, Excessive diarrhea, Weakness (unilateral) Patient Instructions Follow-up Provider: Hallie Kelly MD Follow-up with PCP in: 1 week Provider: Kamille Angel MD Follow-up in: 1 week (Patient to follow-up with Dr. Angel as scheduled.) Anup Mixon MD Sep 18, 2016 13:28
--- NOTE | 2016-09-18 13:32 | NUR ---
Social Work-discharge: Data:EMR Reviewed. Pt is on day 1 of hospitalization for chest pain per h&P. Pt is medically stable for discharge. Pt resides at home with his daughter who will provide transport home today. Pt has been up with his cane in his room. No discharge needs identified. All updated and agreeable to plan. Assessment:pt who is independent at baseline. Plan:Pt to discharge home today via POV. No discharge needs identified. All updated and agreeable to plan. KAVIN Ray
--- NOTE | 2016-09-18 14:20 | NUR ---
Discharge pt ordered for discharge home with family. pt aware. discharge instructions and medications reviewed with patient. pt escorted to front lobby via wheelchair with all belongings.
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
--- NOTE | 2016-09-20 09:26 | DRSVH ---
[facility] [address] [place] [address] Echocardiogram Report Name: AURORA RUIZ CStudy Date : 09/17/2016 Height: 72 in Hospital Exam Location: [facility] Weight: 321 lb Gender: Male BSA: 2.6 m2 : 1955 Age: 61 yrs BP: 162/ 69 mmHg Reason For Study: Chest pain, positive troponin Ordering Physician: HOSPITALIST [facility] Performed By: Juan Carlos Referring Physician: FARSHAD SANDOVAL Interpretation Summary The left ventricle is grossly normal size. There is moderate concentric left ventricular hypertrophy. The ejection fraction is estimated to be 70-75%. There are no focal wall motion abnormalities. There has been no significant change since the previous study. The right ventricle grossly appears normal in size with probable normal systolic function. The aortic root is normal size. The ascending aorta is mildly enlarged. There is no pericardial effusion. No significant changes since 07/14/2016. Procedure: A two-dimensional transthoracic echocardiogram with color flow and Doppler was performed in limited views only. The study quality was technically adequate. The patient was in normal sinus rhythm during the exam. The heart rate ranged between 59-64 bpm during the study. Left Ventricle: The left ventricle is grossly normal size. There is moderate concentric left ventricular hypertrophy. The ejection fraction is estimated to be 70-75%. There has been no significant change since the previous study. There are no focal wall motion abnormalities. Right Ventricle: The right ventricle grossly appears normal in size with probable normal systolic function. Great Vessels: The aortic root is normal size. The ascending aorta is mildly enlarged. Pericardium/ Pleura There is no pericardial effusion. MMode/2D Measurements & Calculations Ao root diam: 3.2 cm asc Aorta Diam: 3.7 cm Reading Physician:RENAE
== END 2016-09-18 14:29 | disposition home or self-care (01) ==
LOC: SED 04:55 → MPC 07:40
PROVIDERS: ADMIT Internal Medicine Infectious Disease; ATTEND Internal Medicine Infectious Disease
DX: R07.89 Other chest pain (principal); R79.89 Other specified abnormal findings of blood chemistry; E11.22 Type 2 diabetes mellitus with diabetic chronic kidney disease; E11.21 Type 2 diabetes mellitus with diabetic nephropathy; N18.3 Chronic kidney disease, stage 3 (moderate); G47.33 Obstructive sleep apnea (adult) (pediatric); R10.9 Unspecified abdominal pain; I50.9 Heart failure, unspecified; I87.2 Venous insufficiency (chronic) (peripheral); N40.0 Benign prostatic hyperplasia without lower urinary tract symptoms; K44.9 Diaphragmatic hernia without obstruction or gangrene; M51.36 Other intervertebral disc degeneration, lumbar region; G89.29 Other chronic pain; Z88.8 Allergy status to other drugs, medicaments and biological substances; Z79.82 Long term (current) use of aspirin; Z79.4 Long term (current) use of insulin; Z79.84 Long term (current) use of oral hypoglycemic drugs
CPT/HCPCS: 36415; 71010; 76705; 80053; 81000; 83690; 83735; 84484; 85025; 93005; 96374; 96375; 96376; 99285; C8924; G0378; J1650; J1815; J2270

== ENCOUNTER 2016-10-02 07:42 | Day surgery (SDC) | payer MEDICARE, OTHER ==
[~2016-10-02 07:42] MED LIST changes: +CHOL200025 PO; +POLY17PO6 PO
[2016-10-02] MEDS ORDERED: Lidocaine Topical 2% 30 mL Jelly ONE (07:57)
== END 2016-10-02 23:59 | disposition home or self-care (01) ==
LOC: END 07:42
PROVIDERS: ATTEND Internal Medicine Gastroenterology
DX: R13.10 Dysphagia, unspecified (principal)

== ENCOUNTER 2016-11-22 11:59 | Day surgery (SDC) | payer MEDICARE, OTHER ==
[2016-11-22] VITALS (12 sets, daily range): BP systolic 134–178; BP diastolic 68–92; PULSE 59–72; RESP 14–25; O2SAT 94–98
[~2016-11-22] VITALS: Ht 182.9 cm; Wt 147.0 kg
[~2016-11-22 11:59] MED LIST changes: +CeFAZolin 2 Gm/50 mL D5W IV Premix IV SCH; +LISI-571 PO; +OMEP20CA11 PO
[2016-11-22] MEDS ORDERED: Propofol 10,000 mCg/mL 20 mL Inj ONE (12:00)
[2016-11-22] MEDS ORDERED: MetoCLOpramide 5 mg/mL 2 mL Inj ONE (12:00)
[2016-11-22] MEDS ORDERED: fentaNYL-PF 50 mCg/mL 2 mL Inj ONE (12:00)
[2016-11-22] MEDS ORDERED: Glycopyrrolate 0.2 MG/ML 1mL Inj ONE (12:00)
[2016-11-22] MEDS ORDERED: Ondansetron 2 mg/mL 2 mL Inj ONE (12:00)
[2016-11-22] MEDS ORDERED: Remifentanil 1 mg/3 mL Inj ONE (12:00)
[2016-11-22] MEDS ORDERED: Neostigmine 1 mg/mL 10 mL Inj ONE (12:00)
[2016-11-22] MEDS ORDERED: GLIM4TAB PO (12:48)
[2016-11-22] MEDS: Lactated Ringer's 1,000 ML IV SCH ×2 (12:58→15:09)
[2016-11-22] MEDS ORDERED: CeFAZolin Inj 3 Gm/ D5W 50 mL Bag IV ONE (15:01)
[2016-11-22] MEDS ORDERED: Bupivacaine-MPF 0.5% 30 mL Inj INFILTRATE ONE (15:41)
[2016-11-22] MEDS ORDERED: Lactated Ringer's 500 ML IV PRN (15:44)
[2016-11-22] MEDS ORDERED: Lactated Ringer's 1,000 ML IV SCH (15:44)
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
[2016-11-22] MEDS ORDERED: HYDROmorphone 1 mg/mL Inj IVPUSH PRN (15:45)
[2016-11-22] MEDS ORDERED: fentaNYL-PF 50 mCg/mL 2 mL Inj IVPUSH PRN (15:45)
[2016-11-22] MEDS ORDERED: Dexamethasone 4 mg/mL Inj IVPUSH PRN (15:45)
[2016-11-22] MEDS ORDERED: Phenylephrine 10,000 mCg/mL Inj IVPUSH PRN (15:45)
[2016-11-22] MEDS ORDERED: MetoCLOpramide 5 mg/mL 2 mL Inj IVPUSH PRN (15:45)
[2016-11-22] MEDS ORDERED: EPHEDrine Sulfate 50 mg/mL Inj IVPUSH PRN (15:45)
[2016-11-22] MEDS ORDERED: Ondansetron 2 mg/mL 2 mL Inj IVPUSH PRN (15:45)
--- NOTE | 2016-11-22 17:14 | PCM.SURGOP ---
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 He also had chronic cholecystitis and I removed his gallbladder 2 months ago. At that time, I did not use a periumbilical incision due to his body habitus, but rather an epigastric one. He returned to my office complaining that the umbilical hernia was painful, especially with certain activities and he therefore strongly desired repair. We had a very duy discussion regarding risks and benefits given that he is obese and diabetic, and he met with an watershed manager prior to the repair in order to maximize his blood glucose control regimen. He was aware of increased risk of wound and other complications due to his body habitus and diabetes. Despite this, together we elected to proceed. Findings: 1. Umbilical hernia with a 3 cm defect with no incarcerated viscera. 2. Primary laparoscopic repair was performed and a 15.2 cm circular mesh was used to cover the defect. Procedure Details The patient was brought to the operating room and placed in supine position. General endotracheal anesthesia was smoothly induced. Antibiotics were infused. A warming blanket and SCDs were placed. The operative field was prepped and draped in sterile fashion. A pause was performed to confirm the correct patient, procedure, site, and side. A Veress needle was placed in the left upper quadrant of the abdomen was insufflated. An Optiview trocar was then used with an 11 mm port to enter the abdomen. Two additional 5 mm ports are placed in the left midabdomen and left lower quadrant. The umbilical hernia defect was visualized and found to contain no incarcerated fat or viscera. It was 3 cm in diameter and circular in shape. Four 0 PDS stitches were placed using a Jasper-Michael device from superior to inferior in order to close the defect. Attention was turned to mesh placement. A 15 cm circular piece of Ventralight dual sided mesh was chosen with the Echo positioning system. The Jasper-Michael device was used just above the umbilicus to grasp the loop at the center of the mesh. An outer row of observable tacks was placed at 1 cm intervals. There was mild oozing after placement of one of the tacks on the left side of the mesh. This was controlled with tamponade, and remained hemostatic for the final 20 minutes of the case. The Echo balloon was removed and an inner row of absorbable tacks was placed. Half percent Marcaine with epinephrine was infused at all port sites and suture sites. The abdomen was desufflated. Skin was closed with 4-0 Monocryl. Sterile dressings were placed. All sponge, needle, and instrument counts were correct at the end of the case. The patient was awakened from general anesthesia and taken to the postoperative care unit in good condition. Complications There were no periprocedural complications identified. Surgical Specimen Removed: No Specimen sent to Pathology: No Anesthetic Plan: GA Grafts, Implants: Implants-See Implant Record Output, Estimated Blood Loss: 5 (ml) Blood Administration during yap: No Shannan Christian MD Nov 22, 2016 17:14
[2016-11-22] MEDS ORDERED: oxyCODONE-Acetamin 5-325 mg Tablet PO PRN (17:15)
--- NOTE | 2016-11-22 17:15 | PCM.DISURG ---
Surgical Discharge Instruction Date of Service Nov 22, 2016 Dates of Hospitalization Date of Hospital Admission Providers Admitting Physician: Primary Care Physician: Hallie Kelly MD Attending Physician: Shannan Christian MD Diet Discharge Diet: No restrictions Activity Discharge Activity-General: Be up and about, Activity as pain allows, No lifting >10 pounds for 4-6 weeks, No driving while taking narcotic Dressing and Incisional Care Dressing Care: Allow Steri Stripes to fall off, Remove outer dressing after 24 hrs Hygiene: May shower after (24 hours), DO NOT soak incision under water, NO bathtub, hot tub or whirlpool Follow Up Plan Follow Up Plan In the general surgery clinic in 2-4weeks. Call at any time with questions or concerns. Call your provider for: Fever, Chills, Increasing abdominal pain, Nausea, Vomiting, Wound redness, Discharge @ incision, pus discharge Francis Mota MD Nov 22, 2016 17:15
--- NOTE | 2016-11-22 17:42 | PCM.ANEP1 ---
Post Anesthesia PACU Phase 1 Assessment Vital Signs Vital Signs Date Time Temp Pulse Resp B/P Pulse Ox O2 Delivery O2 Flow Rate FiO2 11/22/16 17:30 65 17 167/88 95 Room Air 11/22/16 17:25 65 22 164/81 98 Simple Mask 10 11/22/16 17:20 61 20 178/74 97 Simple Mask 10 11/22/16 17:15 65 20 160/81 96 Simple Mask 10 11/22/16 17:13 36 59 19 176/92 97 Simple Mask 10 11/22/16 13:04 CPAP/BIPAP 11/22/16 12:43 36.2 65 16 134/71 95 Room Air Anesthetic Administered: GA Level of Alertness: Sleepy, easy to arouse MIRANDA's with Equal Strength: Yes Pain: No Nausea or Vomiting: No CV Function & Hydration Stable: Yes Airway Device: Oxygen Delivery: Simple Mask Lungs: Clear to Auscultation PACU Phase 2 Assessment Complications: No Follow up Care: N/A Patient Instructions Provided: N/A Fabian Kidd MD Nov 22, 2016 17:42
== END 2016-11-22 23:59 | disposition home or self-care (01) ==
LOC: SAS 11:59
PROVIDERS: ATTEND Surgery
DX: K42.9 Umbilical hernia without obstruction or gangrene (principal); I13.0 Hypertensive heart and chronic kidney disease with heart failure and stage 1 through stage 4 chronic kidney disease, or unspecified chronic kidney disease; N18.3 Chronic kidney disease, stage 3 (moderate); E11.42 Type 2 diabetes mellitus with diabetic polyneuropathy; E11.22 Type 2 diabetes mellitus with diabetic chronic kidney disease; G47.33 Obstructive sleep apnea (adult) (pediatric); E78.5 Hyperlipidemia, unspecified; N40.0 Benign prostatic hyperplasia without lower urinary tract symptoms; E66.9 Obesity, unspecified; Z68.41 Body mass index [BMI] 40.0-44.9, adult; Z79.4 Long term (current) use of insulin; Z79.82 Long term (current) use of aspirin
CPT/HCPCS: 49652; C1781; J0690; J2250; J2405; J2704; J2710; J2765; J3010; J7120